=== PATIENT | male | born 1965 | race Hispanic/Latino ===

== ENCOUNTER 2020-07-19 05:39 | Inpatient (IN) | payer MEDICARE, MEDICAID ==
[~2020-07-19] VITALS: Ht 170.2 cm; Wt 81.6 kg
[~2020-07-19 05:39] MED LIST: IBUPROFEN600 MG ORAL; NKM
--- NOTE | 2020-07-19 05:43 | Emergency Room Report ---
History of Present Illness General Chief Complaint: Abdominal Pain Present Illness HPI 54-year-old male with a history of liver transplant 5 years ago at [facility] here with generalized abdominal pain and vomiting for 1 day. Patient has vomited several times nonbilious nonbloody. One episode of loose stool today. Denies drugs or alcohol. Says abdominal pain is diffuse and nonlocalized. He also says "I can feel my liver getting bigger." Patient takes CellCept and several psychiatric medications. No fevers, chills, chest pain, palpitations, shortness of breath, back pain, diarrhea, dysuria. 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 Nursing Documentation-PMH Hx Diabetes: Yes Review of Systems All Other Systems: negative except mentioned in HPI Physical Exam Sp02 EP Interpretation: reviewed, normal General Appearance: alert, non-toxic, moderate distress, other - Disheveled, foul-smelling, appears uncomfortable actively vomiting Head: normocephalic, atraumatic Eyes: bilateral eye normal inspection, bilateral eye PERRL ENT: hearing grossly normal, normal pharynx, no angioedema, normal voice Neck: full range of motion, supple/symm/no masses Respiratory: chest non-tender, lungs clear, normal breath sounds, speaking full sentences Cardiovascular #1: no edema, other - Tachycardic regular rhythm approximately 110 bpm Cardiovascular #2: 2+ carotid (R), 2+ carotid (L), 2+ radial (R), 2+ radial (L), 2+ dorsalis pedis (R), 2+ dorsalis pedis (L) Gastrointestinal: normal bowel sounds, no guarding, no rebound, other - Well- healed multiple midline abdominal surgical scars. Abdomen is slightly distended diffusely. Liver tip is palpable distal to the rib cage. Rectal: deferred Genitourinary: normal inspection, no CVA tenderness Musculoskeletal: back normal, normal range of motion, gait/station normal, non- tender Neurologic: alert, motor strength/tone normal, oriented x3, sensory intact, responsive, speech normal Psychiatric: judgement/insight normal, memory normal, mood/affect normal, no suicidal/homicidal ideation Lymphatic: no adenopathy Medical Decision Making Diagnostic Impression: Primary Impression: Abdominal pain ER Course EKG: Sinus rhythm 108 bpm, no ischemia, intervals WNL. No ectopy Rhythm strip: patient monitored for arrhythmias - no malignant dysrhythmias, runs of PVCs, nor pauses noted 54-year-old male with history of liver transplant on CellCept here with diffuse abdominal pain and vomiting and diarrhea for 1 day. Patient signed out to oncoming physician. Pending labs, fluids, pain medicine. Disposition pending at this time. Oscar Trevino M.D. Jul 19, 2020 05:43
[2020-07-19] MEDS ORDERED: Lidocaine 2% Visc 15ml soln ORAL ONE (05:45)
[2020-07-19] MEDS ORDERED: Dicyclomine HCl 10mg/5ml oral soln ORAL ONE (05:45)
[2020-07-19] MEDS ORDERED: Mylanta II UD 30ml ORAL ONE (05:45)
[2020-07-19 05:57] LABS: HEMATOCRIT 32.8 % (42.0-52.0); MEAN CORPUSCULAR VOLUME 93 FL (80-99); PLATELET COUNT 85 K/UL (150-450); RED BLOOD COUNT 3.53 M/UL (4.70-6.10); RED CELL DISTRIBUTION WIDTH 17.7 % (11.6-14.8); WHITE BLOOD COUNT 8.1 K/UL (4.8-10.8)
[2020-07-19] MEDS ORDERED: Morphine Sulfate 4mg/ml Inj (IV USE ONLY) IVP ONE (06:00)
[2020-07-19] MEDS ORDERED: Omnipaque-300 100ml vial INJ PRN (06:00)
--- NOTE | 2020-07-19 06:02 | NUR ---
ED Nurse Note: PT brought in by ambulance. Vitals are stable as documented on RA. Per EMS pt was found on the lobby floor of a hotel. He is complaining of severe abdominal pain and N/V starting at about 6pm last night. He states that he has a history of a liver transplant and that he has been drinking from time to time. ER MD asessed pt at bedside. Labs sent. Pt states that he is unalbe to give a urine sample. EKG done.
[2020-07-19 06:07] VITALS: BP 154/90
[2020-07-19 06:15] LABS: ANION GAP 13 mmol/L (5-15); BLOOD UREA NITROGEN 9 mg/dL (7-18); CALCIUM 8.2 MG/DL (8.5-10.1); CARBON DIOXIDE 24 MMOL/L (21-32); CHLORIDE 102 MMOL/L (98-107); CREATININE 0.9 MG/DL (0.55-1.30); POTASSIUM 3.2 MMOL/L (3.5-5.1); SODIUM 139 MMOL/L (136-145)
--- NOTE | 2020-07-19 06:28 | NUR ---
ED Nurse Note: Pt left for CT
[2020-07-19 06:46] LABS: ALANINE AMINOTRANSFERASE 73 U/L (12-78); ALBUMIN 3.8 G/DL (3.4-5.0); ALBUMIN/GLOBULIN RATIO 0.9 (1.0-2.7); ALKALINE PHOSPHATASE 653 U/L (46-116); ASPARTATE AMINO TRANSFERASE 126 U/L (15-37); BILIRUBIN,TOTAL 1.3 MG/DL (0.2-1.0)
[2020-07-19 06:57] LABS: BILIRUBIN,DIRECT 0.8 MG/DL (0.0-0.3)
--- NOTE | 2020-07-19 07:00 | NUR ---
ED Nurse Note: Pt back from CT
--- NOTE | 2020-07-19 07:02 | NUR ---
ED Nurse Note: Recieved report from MARY Alfaro. Patient c/o abd an lower back pain 10/10, anxious, asking for pain medication.
--- NOTE | 2020-07-19 07:16 | Emergency Room Report ---
Physical Exam Vital Signs Date Time Temp Pulse Resp B/P (MAP) Pulse Ox O2 Delivery O2 Flow Rate FiO2 07/19/20 05:36 98.6 116 20 172/89 (116) 99 Room Air Sp02 EP Interpretation: reviewed, normal Medical Decision Making Diagnostic Impression: Primary Impression: Abdominal pain Additional Impressions: Abnormal liver function test History of liver transplant Acute alcoholic intoxication End-stage liver disease Melena Anemia ER Course I, Dr Ronda Pimentel, have assumed care of the patient. Initial workup, history, and physical performed by previous provider has been reviewed by myself and I have performed my own physical exam of the patient. I reviewed previous medical records. Patient has history of pancytopenia secondary to previous alcoholism and polysubstance abuse. Patient apparently had a liver transplant 5 years ago at [facility] with Dr Bennett. He last had appointment with him 1 month ago. Routine blood labs at that time were normal including liver function test. Patient states his last drink was over Thanksgiving, only 2 beers. He states that he developed diffuse abdominal pain last night at 6 PM associated with nausea and vomiting. He states he has been having dark stools for the last 1 week. On initial vital signs, patient is afebrile, but is found to have hepatosplenomegaly on abdominal examination. No CVA tenderness to palpation. No peritonitis. He is tachycardic and tremulous, raising concern for etoh withdrawals. He had multiple bouts of vomiting in ED. CURES was performed. Patient was prescribed [place] in April 2020, however has no recent prescriptions. Laboratory evaluation is notable for abnormal LFTs. EtOH level is 31. No significant leukocytosis or acidosis. Troponin is negative x1. EKG is nonischemic. When asked about the high etoh level, patient now states he has been drinking wine x 1 month (last drink yesterday 1/2 bottle of wine) to numb his pain. CT scan of the abdomen pelvis shows heterogeneous lobular low density in the anterior right and medial left hepatic lobe. Nonspecific soft tissue stranding/inflammatory change near the deena hepatis in the right upper quadrant and pneumobilia, likely related to stent placement. Also found to have colitis. No perforation or free air. 0758: [facility] contacted for transfer. 0826: Attempted to contact Dr Bennett at [facility] ([phone]). No answer x 1. 0837: I spoke with [facility] transfer center ([facility]) who consulted with [facility] liver transplant team. Patient is well-known to [facility] liver team. According to [facility], patient has been drinking alcohol and taking methamphetamine despite counseling not to by his surgeons, thus causing a "divorce of care" from [facility]. They are no longer managing his transplant care due to non compliance. Last visit was one month ago. Patient had an upcoming telemedicine visit on 08/03/2019, but patient cancelled due to knee injury so it's postponed until 08/24/2019. [facility] will page Dr Bennett as I have not been able to reach him in office. I spoke with our [facility] risk management consultant, Dr. Gates who agrees with the current management. ED intervention included protonix for PUD r/o GI bleed in the setting of his melanotic stools. Pain control with morphine, Dilaudid. Zofran and Compazine alleviated his nausea. Steroids and antibiotics given for concern for transplant rejection, although less likely. Patient was hydrated and given thiamine and folic acid. I spoke with Dr. Grande, and reviewed the patients presentation, workup, results, and treatment. They will admit the patient for further care and evaluation, and assume care of the patient at this time. Critical Care Statement Organ systems at risk include: Circulatory, GI Critical care performed for 45 minutes. Time is exclusive of separately billable procedures. Time includes: direct patient care, continuous monitoring and multiple patient reassessment, coordination of patient care, review of patient's medical records, medical consultation, family consultation regarding treatment decisions and documentation of patient care. EKG Diagnostic Results PA Scribe Text 12-lead EKG (interpreted by me) Time: 0547 Indication: Rhythm analysis Tracing visualized and Interpreted by me. Rhythm: Sinus tachycardia Rate: 108 bpm QTc: 503 Morphology: No_significant_ST_elevations_or_depressions, No STEMI Impression: Sinus tachycardia Rhythm Strip Diag. Results Rhythm Strip Time: 07:11 EP Interpretation: yes Rate: 102 Rhythm: no PVC's, no ectopy, other - Sinus tachycardia CT/MRI/US Diagnostic Results CT/MRI/US Diagnostic Results : Impression CT Abdomen and Pelvis With Intravenous Contrast FINDINGS: Lung bases: Tiny nodular density in the inferior lingula. ABDOMEN: Liver: Heterogeneous lobular low density in the anterior right and medial left hepatic lobe which may partly reflect perfusion artifact. Follow-up underlying mass difficult to exclude given lobular contour inferiorly. Focal lobularity in the medial left hepatic lobe, nonspecific. Attention to this area on follow-up further imaging. Nonspecific soft tissue stranding in the perihepatic region. Gallbladder and bile ducts: Pneumobilia likely related to stent placement. Gallbladder not seen, likely surgically absent. No ductal dilation. Pancreas: Unremarkable. No mass. No ductal dilation. Spleen: Mild splenomegaly. Adrenals: Unremarkable. No mass. Kidneys and ureters: No evidence for obstructive uropathy. Nonspecific perinephric soft tissue stranding. Nonobstructing left renal calculus. Stomach and bowel: Thickening in the large bowel, especially the hepatic flexure which may partly reflect reactive change. Developing colitis difficult to entirely exclude. No evidence for bowel obstruction. PELVIS: Appendix: No findings to suggest acute appendicitis. Bladder: Thickening of the bladder wall which may partly reflect under distentio n. Recommend clinical correlation and follow-up to exclude developing cystitis. Reproductive: Unremarkable as visualized. ABDOMEN and PELVIS: Intraperitoneal space: Unremarkable. No free air. No significant fluid collection. Bones/joints: Deformity in the visualized left posterior lateral ribs, likely old posttraumatic change. No acute fracture. No dislocation. Soft tissues: Small fat-containing inguinal hernias bilaterally. Small periumbilical hernia containing fat. Vasculature: Unremarkable. No abdominal aortic aneurysm. Lymph nodes: Unremarkable. No enlarged lymph nodes. IMPRESSION: 1. Finding in the liver which may partly reflect perfusion artifact. Focal infarct or underlying lesion difficult to entirely exclude and follow-up liver MR recommended as indicated. 2. Pneumobilia likely related to stent placement. 3. Nonspecific soft tissue stranding/inflammatory change near the deena hepatis in the right upper quadrant. 4. No discrete fluid collection. 5. Findings which may reflect colitis as described 6. Recommend clinical correlation and close follow-up. 7. No evidence for bowel obstruction or free air. 8. Mild splenomegaly Radiologist: Anne Marie Beckford M.D. Reevaluation Time: 07:11 Last Vital Signs Date Time Temp Pulse Resp B/P (MAP) Pulse Ox O2 Delivery O2 Flow Rate FiO2 07/19/20 06:30 98.6 07/19/20 06:07 20 154/90 99 Room Air 07/19/20 06:07 105 Status: improved Disposition: ADMITTED INPATIENT Admit Decision Time: 07:11 Condition: Stable Referrals: [facility],REFERRING (PCP) Patient Instructions: Abdominal Pain, Adult Ronda Pimentel D.O. Jul 19, 2020 07:15
[2020-07-19] MEDS ORDERED: Pantoprazole Inj IVP ONE (07:30)
[2020-07-19] MEDS ORDERED: Solu-MEDROL 125mg Inj IVP ONE (07:30)
[2020-07-19] MEDS ORDERED: Hydromorphone 0.5mg/0.5ml inj IVP ONE (07:30)
[2020-07-19] MEDS ORDERED: DiphenhydrAMINE 50mg/ml Inj IVP ONE (07:30)
--- NOTE | 2020-07-19 07:32 | Diagnostic Imaging Report ---
EXAM: CT Abdomen and Pelvis With Intravenous Contrast CLINICAL HISTORY: PAIN TECHNIQUE: Axial computed tomography images of the abdomen and pelvis with intravenous contrast. CTDI is 11.80 mGy and DLP is 695.80 mGy-cm. One or more of the following dose reduction techniques were used: automated exposure control, adjustment of the mA and/or kV according to patient size, use of iterative reconstruction technique. COMPARISON: No relevant prior studies available. FINDINGS: Lung bases: Tiny nodular density in the inferior lingula. ABDOMEN: Liver: Heterogeneous lobular low density in the anterior right and medial left hepatic lobe which may partly reflect perfusion artifact. Follow-up underlying mass difficult to exclude given lobular contour inferiorly. Focal lobularity in the medial left hepatic lobe, nonspecific. Attention to this area on follow-up further imaging. Nonspecific soft tissue stranding in the perihepatic region. Gallbladder and bile ducts: Pneumobilia likely related to stent placement. Gallbladder not seen, likely surgically absent. No ductal dilation. Pancreas: Unremarkable. No mass. No ductal dilation. Spleen: Mild splenomegaly. Adrenals: Unremarkable. No mass. Kidneys and ureters: No evidence for obstructive uropathy. Nonspecific perinephric soft tissue stranding. Nonobstructing left renal calculus. Stomach and bowel: Thickening in the large bowel, especially the hepatic flexure which may partly reflect reactive change. Developing colitis difficult to entirely exclude. No evidence for bowel obstruction. PELVIS: Appendix: No findings to suggest acute appendicitis. Bladder: Thickening of the bladder wall which may partly reflect under distention. Recommend clinical correlation and follow-up to exclude developing cystitis. Reproductive: Unremarkable as visualized. ABDOMEN and PELVIS: Intraperitoneal space: Unremarkable. No free air. No significant fluid collection. Bones/joints: Deformity in the visualized left posterior lateral ribs, likely old posttraumatic change. No acute fracture. No dislocation. Soft tissues: Small fat-containing inguinal hernias bilaterally. Small periumbilical hernia containing fat. Vasculature: Unremarkable. No abdominal aortic aneurysm. Lymph nodes: Unremarkable. No enlarged lymph nodes. IMPRESSION: 1. Finding in the liver which may partly reflect perfusion artifact. Focal infarct or underlying lesion difficult to entirely exclude and follow-up liver MR recommended as indicated. 2. Pneumobilia likely related to stent placement. 3. Nonspecific soft tissue stranding/inflammatory change near the deena hepatis in the right upper quadrant. 4. No discrete fluid collection. 5. Findings which may reflect colitis as described 6. Recommend clinical correlation and close follow-up. 7. No evidence for bowel obstruction or free air. 8. Mild splenomegaly
[2020-07-19] MEDS ORDERED: LORazepam Inj 2mg/ml 1ml IV ONE (07:45)
[2020-07-19] MEDS ORDERED: Piperacillin/Tazobactam 3.375 GM in NS 110 ML IVPB ONE (08:30)
--- NOTE | 2020-07-19 12:06 | General Progress Note ---
Subjective ROS Limited/Unobtainable: Yes Allergies: Coded Allergies: ACETAMINOPHEN (Unverified Allergy, Unknown, 02/14/14) VOMITTING HYDROCODONE (Unverified Allergy, Unknown, 02/14/14) VOMITTING Objective Last 24 Hour Vital Signs Date Time Temp Pulse Resp B/P (MAP) Pulse Ox O2 Delivery O2 Flow Rate FiO2 07/19/20 08:03 98.6 07/19/20 06:30 98.6 07/19/20 06:07 98.6 20 154/90 99 Room Air 07/19/20 06:07 105 22 Room Air 07/19/20 05:36 98.6 116 20 172/89 (116) 99 Room Air Laboratory Tests 07/19/20 05:50: White Blood Count 8.1, Red Blood Count 3.53L, Hemoglobin 11.0L, Hematocrit 32.8L , Mean Corpuscular Volume 93, Mean Corpuscular Hemoglobin 31.2H, Mean Corpuscular Hemoglobin Concent 33.6, Red Cell Distribution Width 17.7H, Platelet Count 85L, Mean Platelet Volume 7.1, Neutrophils (%) (Auto) , Lymphocytes (%) (Auto) , Monocytes (%) (Auto) , Eosinophils (%) (Auto) , Basophils (%) (Auto) , Sodium Level 139, Potassium Level 3.2L, Chloride Level 102, Carbon Dioxide Level 24, Anion Gap 13, Blood Urea Nitrogen 9, Creatinine 0.9, Estimat Glomerular Filtration Rate > 60, Glucose Level 107H, Calcium Level 8.2L, Total Bilirubin 1.3H, Direct Bilirubin 0.8H, Aspartate Amino Transf (AST/SGOT) 126H, Alanine Aminotransferase (ALT/SGPT) 73, Alkaline Phosphatase 653H, Troponin I 0.000, Total Protein 7.9, Albumin 3.8, Globulin 4.1, Albumin/Globulin Ratio 0.9L, Lipase 65L, Serum Alcohol 31 Height (Feet): 5 Height (Inches): 7.00 Weight (Pounds): 180 General Appearance: alert EENT: normal ENT inspection Neck: supple Cardiovascular: normal rate Respiratory/Chest: lungs clear Abdomen: normal bowel sounds, non tender, soft Extremities: non-tender Assessment/Plan Problem List: (1) History of liver transplant ICD Codes: Z94.4 - Liver transplant status SNOMED: 086078647 (2) Abnormal liver function test ICD Codes: R94.5 - Abnormal results of liver function studies SNOMED: 459484188 (3) Abdominal pain ICD Codes: R10.9 - Unspecified abdominal pain SNOMED: 64325345 (4) Acute alcoholic intoxication ICD Codes: F10.129 - Alcohol abuse with intoxication, unspecified SNOMED: [id number] Assessment/Plan: s/p recent ercp and stenting at [facility] fu labs thiamine/folate/MVI monitor for withdraw resume home meds for liver transplant Josse Miramontes MD Jul 19, 2020 12:05
[2020-07-19 12:10] VITALS: BP 150/90
[2020-07-19] MEDS ORDERED: Thiamine 100mg tab ORAL SCH (12:15)
[2020-07-19 12:20] LABS: APPEARANCE,URINE CLEAR; BILIRUBIN, URINE NEGATIVE (NEGATIVE); GLUCOSE, URINE (UA) NEGATIVE (NEGATIVE); KETONES,URINE 1+ (NEGATIVE); LEUKOCYTE ESTERASE ,URINE NEGATIVE (NEGATIVE); NITRITE,URINE NEGATIVE (NEGATIVE); PH,URINE 7 (4.5-8.0); PROTEIN,URINE 1+ (NEGATIVE); UROBILINOGEN,URINE NORMAL MG/DL (0.0-1.0)
[2020-07-19 12:24] LABS: COLOR,URINE YELLOW
[2020-07-19] MEDS ORDERED: DICLOFEN 3%-HYA30 GM TP (12:36)
[2020-07-19] MEDS ORDERED: ZOFRAN ODT8 MG ORAL (12:36)
[2020-07-19] MEDS ORDERED: MYCOPHENOLATE250 MG PO (12:36)
[2020-07-19] MEDS ORDERED: PYRIDOXINE HCL50 MG ORAL (12:44)
[2020-07-19] MEDS ORDERED: VITAMIN B-1100 MG ORAL (12:44)
[2020-07-19] MEDS ORDERED: FOLIC ACID1 MG ORAL (12:44)
[2020-07-19] MEDS ORDERED: LIDOCAINE1 EACH TP (12:44)
[2020-07-19] MEDS ORDERED: PANTOPRAZOLE SO40 MG ORAL (12:44)
[2020-07-19] MEDS ORDERED: FERROUS SULFAT325 MG ORAL (12:44)
[2020-07-19] MEDS ORDERED: AMLODIPINE BESY10 MG ORAL (12:44)
--- NOTE | 2020-07-19 13:05 | Consultation ---
History of Present Illness General Date patient seen: Jul 19, 2020 Reason for Hospitalization: Abdominal Pain Present Illness HPI This is a pleasant 54-year-old male with history prior alcoholism and polysubstance abuse who is s/p liver transplant 5 years ago at [facility] with Dr. Bennett who presented to [facility] ED c/o abd pain. States has not used drugs meth in 1 month but still drinking heavy. Patient reported of diffuse abdominal pain with associated with nausea and vomiting. He also reports he has had dark stools for [address] as below. elevated lft's. exam with distended abd. surgery called to evaluate and assist with care. patient seen in ED, chart reviewed, patient examined. no n/v/f/c currently states he is hungry. Allergies: Coded Allergies: ACETAMINOPHEN (Unverified Allergy, Unknown, 02/14/14) VOMITTING HYDROCODONE (Unverified Allergy, Unknown, 02/14/14) VOMITTING COVID-19 Screening Contact w/high risk pt: No Experienced COVID-19 symptoms?: No Medication History Scheduled Amlodipine Besylate* (Amlodipine Besylate*), 10 MG ORAL DAILY, (Reported) Aspirin Ec* (Aspirin Ec*), 81 MG ORAL DAILY, (Reported) Cholecalciferol (Vitamin D3) (Vitamin D3*), 25 MCG PO DAILY, (Reported) Clindamycin Phosphate Vag cream (Clindesse Vag Cream), 5.8 GM VG BEDTIME, (Reported) Ferrous Sulfate* (Ferrous Sulfate*), 325 MG ORAL DAILY, (Reported) Folic Acid* (Folic Acid*), 1 MG ORAL DAILY, (Reported) No Known Medications* (NKM - No Known Medications*), 0 ., (Reported) Pantoprazole* (Pantoprazole*), 40 MG ORAL DAILY, (Reported) Propranolol Hcl* (Inderal La*), 20 MG ORAL DAILY, (Reported) Pyridoxine Hcl* (Vitamin B-6*), 50 MG ORAL DAILY, (Reported) Thiamine Hcl* (Vitamin B-1*), 100 MG ORAL DAILY, (Reported) Triamcinolone Acetonide (Triamcinolone Acetonide 0.5% Oint*), 15 GM TP NEEDED, (Reported) Venlafaxine Hcl (Venlafaxine Hcl*), 200 MG ORAL DAILY, (Reported) Scheduled PRN Hydrocodone Bit/Acetaminophen 5-325* (Ider 5-325 Tablet*), 1 TAB ORAL Q6H PRN for FOR PAIN, (Reported) Ibuprofen (Motrin), 600 MG ORAL Q8H PRN for For Pain Ondansetron Odt* (Zofran Odt*), 4 MG ORAL Q6H PRN for Nausea & Vomiting, (Reported) Zolpidem Tartrate* (Zolpidem Tartrate*), 5 MG ORAL BEDTIME PRN for Insomnia, (Reported) Miscellaneous Medications Diclofenac/Hyaluronate/Niacin (Diclofen 3%-Hyaluron 2%-Niac4%), 30 GM TP, (Reported) Lidocaine (Lidocaine), 1 EACH TP, (Reported) Magnesium Oxide (Magnesium), 400 MG PO, (Reported) Mycophenolate Mofetil (Mycophenolate Mofetil), 250 MG PO, (Reported) Tacrolimus (Tacrolimus), 3 MG PO, (Reported) Patient History History Provided By: Patient, Medical Record, PMD Healthcare decision maker Resuscitation status Advanced Directive on File Past Medical/Surgical History Past Medical/Surgical History: (1) Flank pain (2) Acute chest pain (3) Rhabdomyolysis (4) Amphetamine abuse (5) Hypokalemia (6) [id number] (7) Alcohol intoxication (8) Alcohol abuse (9) Shoulder Pain (10) narcotic seeking behavior (11) [id number] (12) Acute alcoholic intoxication (13) Alcohol abuse (14) Pancytopenia (15) Opioid dependence (16) Opioid dependence (17) Alcohol withdrawal (18) Melena (19) Anemia (20) Acute alcoholic intoxication (21) Abdominal pain (22) Abnormal liver function test (23) End-stage liver disease Review of Systems Review of Symptoms General ROS: no weight loss or fever Psychological ROS: no depression or mood changes, no memory loss Ophthalmic ROS: no visual changes or eye irritation ENT ROS: no nasal congestion, hearing loss, dizziness Allergy and Immunology ROS: no allergic symptoms or urticaria Hematological and Lymphatic ROS: no swollen glands, unusual bleeding or bruising Endocrine ROS: no polyuria, polydipsia, weight changes, temperature intolerance Respiratory ROS: no cough, shortness of breath, or wheezing Cardiovascular ROS: no chest pain or dyspnea on exertion Gastrointestinal ROS: denies abdominal pain, bright red blood in stool. Musculoskeletal ROS: no myalgias or arthralgias Neurological ROS: no TIA or stroke symptoms Dermatological ROS: no new or changing skin lesions, rashes or pruritis Physical Exam Physical Exam General appearance: alert, cooperative, no distress, appears stated age Head: Normocephalic, without obvious abnormality, atraumatic Eyes: conjunctivae/corneas clear. PERRL, EOM's intact. Fundi benign Throat: Lips, mucosa, and tongue normal. Teeth and gums normal Neck: supple, symmetrical, trachea midline, no adenopathy, thyroid: not enlarged, symmetric, no tenderness/mass/nodules, no carotid bruit and no JVD Lungs: clear to auscultation bilaterally Heart: regular rate and rhythm, S1, S2 normal, no murmur, click, rub or gallop Abdomen: soft, non-tender. Bowel sounds normal. No masses, enlarged liver. chevron incision c/d/i Extremities: extremities normal, atraumatic, no cyanosis or edema Pulses: 2+ and symmetric Skin: Skin color, texture, turgor normal. No rashes or lesions Neurologic: Grossly normal Last 24 Hour Vital Signs Date Time Temp Pulse Resp B/P (MAP) Pulse Ox O2 Delivery O2 Flow Rate FiO2 07/19/20 08:03 98.6 07/19/20 06:30 98.6 07/19/20 06:07 98.6 20 154/90 99 Room Air 07/19/20 06:07 105 22 Room Air 07/19/20 05:36 98.6 116 20 172/89 (116) 99 Room Air Laboratory Tests Test 07/19/20 05:50 07/19/20 11:20 White Blood Count 8.1 K/UL (4.8-10.8) Red Blood Count 3.53 M/UL (4.70-6.10) L Hemoglobin 11.0 G/DL (14.2-18.0) L Hematocrit 32.8 % (42.0-52.0) L Mean Corpuscular Volume 93 FL (80-99) Mean Corpuscular Hemoglobin 31.2 PG (27.0-31.0) H Mean Corpuscular Hemoglobin Concent 33.6 G/DL (32.0-36.0) Red Cell Distribution Width 17.7 % (11.6-14.8) H Platelet Count 85 K/UL (150-450) L Mean Platelet Volume 7.1 FL (6.5-10.1) Neutrophils (%) (Auto) % (45.0-75.0) Lymphocytes (%) (Auto) % (20.0-45.0) Monocytes (%) (Auto) % (1.0-10.0) Eosinophils (%) (Auto) % (0.0-3.0) Basophils (%) (Auto) % (0.0-2.0) Sodium Level 139 MMOL/L (136-145) Potassium Level 3.2 MMOL/L (3.5-5.1) L Chloride Level 102 MMOL/L (98-107) Carbon Dioxide Level 24 MMOL/L (21-32) Anion Gap 13 mmol/L (5-15) Blood Urea Nitrogen 9 mg/dL (7-18) Creatinine 0.9 MG/DL (0.55-1.30) Estimat Glomerular Filtration Rate > 60 mL/min (>60) Glucose Level 107 MG/DL (74-106) H Calcium Level 8.2 MG/DL (8.5-10.1) L Total Bilirubin 1.3 MG/DL (0.2-1.0) H Direct Bilirubin 0.8 MG/DL (0.0-0.3) H Aspartate Amino Transf (AST/SGOT) 126 U/L (15-37) H Alanine Aminotransferase (ALT/SGPT) 73 U/L (12-78) Alkaline Phosphatase 653 U/L (46-116) H Troponin I 0.000 ng/mL (0.000-0.056) Total Protein 7.9 G/DL (6.4-8.2) Albumin 3.8 G/DL (3.4-5.0) Globulin 4.1 g/dL Albumin/Globulin Ratio 0.9 (1.0-2.7) L Lipase 65 U/L (73-393) L Alpha Fetoprotein Pending Tacrolimus (Prograf) Level Pending Serum Alcohol 31 mg/dL Urine Color Yellow Urine Appearance Clear Urine pH 7 (4.5-8.0) Urine Specific [place] 1.005 (1.005-1.035) Urine Protein 1+ (NEGATIVE) H Urine Glucose (UA) Negative (NEGATIVE) Urine Ketones 1+ (NEGATIVE) H Urine Blood Negative (NEGATIVE) Urine Nitrite Negative (NEGATIVE) Urine Bilirubin Negative (NEGATIVE) Urine Urobilinogen Normal MG/DL (0.0-1.0) Urine Leukocyte Esterase Negative (NEGATIVE) Urine RBC 0-2 /HPF (0 - 0) H Urine WBC 0-2 /HPF (0 - 0) Urine Squamous Epithelial Cells Occasional /LPF Urine Bacteria Occasional /HPF (NONE) Urine Opiates Screen Negative (NEGATIVE) Urine Barbiturates Screen Negative (NEGATIVE) Phencyclidine (PCP) Screen Negative (NEGATIVE) Urine Amphetamines Screen Positive (NEGATIVE) H Urine Benzodiazepines Screen Negative (NEGATIVE) Urine Cocaine Screen Negative (NEGATIVE) Urine Marijuana (THC) Screen Positive (NEGATIVE) H Microbiology Date/Time Source Procedure Growth Status 07/19/20 07:59 Nasopharynx SARS-CoV-2 RdRp Gene Assay - Final Complete Height (Feet): 5 Height (Inches): 7.00 Weight (Pounds): 180 Medications Current Medications Medications (Trade) Dose Ordered Sig/Lauro Route PRN Reason Start Time Stop Time Status Last Admin Dose Admin Amlodipine Besylate (Norvasc) 10 mg DAILY ORAL 07/20/20 09:00 08/19/20 08:59 Ferrous Sulfate (Feosol) 325 mg DAILY ORAL 07/20/20 09:00 10/18/20 08:59 Folic Acid (Folate) 1 mg DAILY ORAL 07/20/20 09:00 08/19/20 08:59 Iohexol (OMNIPAQUE-300 100ml) 100 ml NOW PRN INJ Radiology Procedure 07/19/20 06:00 07/21/20 05:59 Multivitamins (Multivitamins) 1 tab DAILY ORAL 07/20/20 09:00 08/19/20 08:59 Mycophenolate Mofetil (Cellcept) 250 mg BID ORAL 07/19/20 18:00 10/17/20 17:59 Pantoprazole (Protonix) 40 mg DAILY ORAL 07/20/20 09:00 08/19/20 08:59 Pyridoxine HCl (Vitamin B6) 50 mg DAILY ORAL 07/20/20 09:00 08/19/20 08:59 Thiamine HCl (Vitamin B1) 100 mg DAILY ORAL 07/20/20 09:00 08/19/20 08:59 Thiamine HCl (Vitamin B1) 100 mg ONCE ORAL 07/19/20 12:15 07/19/20 15:00 Assessment/Plan Problem List: (1) Alcohol withdrawal ICD Codes: F10.239 - Alcohol dependence with withdrawal, unspecified SNOMED: 871514607 (2) Melena ICD Codes: K92.1 - Melena SNOMED: 0976033 (3) Anemia ICD Codes: D64.9 - Anemia, unspecified SNOMED: 999751453 (4) Acute alcoholic intoxication ICD Codes: F10.129 - Alcohol abuse with intoxication, unspecified SNOMED: 74450035 (5) Abdominal pain Assessment & Plan: 54M hx liver transplant currently drinking again presented with abd pain afebrile, HD Stable labs with elevated lft's CT reviewed exam with enlarged liver no peritonitis okay for diet no acute surgical intervention iv fluids trend labs etoh refrain discussed thank you ABDOMEN: Liver: Heterogeneous lobular low density in the anterior right and medial left hepatic lobe which may partly reflect perfusion artifact. Follow-up underlying mass difficult to exclude given lobular contour inferiorly. Focal lobularity in the medial left hepatic lobe, nonspecific. Attention to this area on follow-up further imaging. Nonspecific soft tissue stranding in the perihepatic region. Gallbladder and bile ducts: Pneumobilia likely related to stent placement. Gallbladder not seen, likely surgically absent. No ductal dilation. Pancreas: Unremarkable. No mass. No ductal dilation. Spleen: Mild splenomegaly. Adrenals: Unremarkable. No mass. Kidneys and ureters: No evidence for obstructive uropathy. Nonspecific perinephric soft tissue stranding. Nonobstructing left renal calculus. Stomach and bowel: Thickening in the large bowel, especially the hepatic flexure which may partly reflect reactive change. Developing colitis difficult to entirely exclude. No evidence for bowel obstruction. PELVIS: Appendix: No findings to suggest acute appendicitis. Bladder: Thickening of the bladder wall which may partly reflect under distention. Recommend clinical correlation and follow-up to exclude developing cystitis. Reproductive: Unremarkable as visualized. ABDOMEN and PELVIS: Intraperitoneal space: Unremarkable. No free air. No significant fluid collection. Bones/joints: Deformity in the visualized left posterior lateral ribs, likely old posttraumatic change. No acute fracture. No dislocation. Soft tissues: Small fat-containing inguinal hernias bilaterally. Small periumbilical hernia containing fat. Vasculature: Unremarkable. No abdominal aortic aneurysm. Lymph nodes: Unremarkable. No enlarged lymph nodes. IMPRESSION: 1. Finding in the liver which may partly reflect perfusion artifact. Focal infarct or underlying lesion difficult to entirely exclude and follow-up liver MR recommended as indicated. 2. Pneumobilia likely related to stent placement. 3. Nonspecific soft tissue stranding/inflammatory change near the deena hepatis in the right upper quadrant. 4. No discrete fluid collection. 5. Findings which may reflect colitis as described 6. Recommend clinical correlation and close follow-up. 7. No evidence for bowel obstruction or free air. 8. Mild splenomegaly ICD Codes: R10.9 - Unspecified abdominal pain SNOMED: 18693067 (6) Abnormal liver function test ICD Codes: R94.5 - Abnormal results of liver function studies SNOMED: 553297882 (7) End-stage liver disease ICD Codes: K72.90 - Hepatic failure, unspecified without coma SNOMED: 78359660 (8) Hypokalemia (9) Alcohol intoxication (10) 32458 (11) Opioid dependence ICD Codes: F11.20 - Opioid dependence, uncomplicated SNOMED: 43801707 (12) Opioid dependence ICD Codes: F11.20 - Opioid dependence, uncomplicated SNOMED: 07517734 (13) Alcohol abuse (14) Alcohol abuse ICD Codes: F10.10 - Alcohol abuse, uncomplicated SNOMED: 23842810 (15) Flank pain (16) Pancytopenia ICD Codes: D61.818 - Other pancytopenia SNOMED: 169484000 (17) Rhabdomyolysis (18) Acute alcoholic intoxication ICD Codes: F10.129 - Alcohol abuse with intoxication, unspecified SNOMED: 32287882 (19) Amphetamine abuse (20) Acute chest pain (21) [id number] (22) Shoulder Pain (23) narcotic seeking behavior Polo Gates Jul 19, 2020 13:05
[2020-07-19] MEDS ORDERED: INDERAL LA60 MG ORAL (13:20)
[2020-07-19] MEDS ORDERED: TACROLIMUS1 MG PO (13:20)
[2020-07-19] MEDS ORDERED: MAGNESIUM400 M1 PO (13:20)
[2020-07-19] MEDS ORDERED: VITAMIN D325 MC1 PO (13:20)
[2020-07-19] MEDS ORDERED: TRIAMCINOLONE A15 G3 TP (13:20)
[2020-07-19] MEDS ORDERED: VENLAFAXINE HC100 MG ORAL (13:20)
[2020-07-19] MEDS ORDERED: ASPIRIN EC81 MG ORAL (13:20)
[2020-07-19] MEDS ORDERED: NORCO 5-325 TA1 EAC1 ORAL (13:20)
[2020-07-19] MEDS ORDERED: CLINDESSE5.8 GM VG (13:20)
[2020-07-19] MEDS ORDERED: ZOLPIDEM TARTRAT5 MG ORAL (13:20)
--- NOTE | 2020-07-19 13:20 | NUR ---
ED Nurse Note: lunch tray was provided, patient was able to finish 100% of his meal. Patient calm, and cooperative, all VSS at this time
--- NOTE | 2020-07-19 15:00 | HX and Phyl Repo 2 Sig ---
DATE OF ADMISSION: 07/19/2020 ATTENDING PHYSICIAN: Joao Grande MD REASON FOR ADMISSION: Melena. HISTORY OF PRESENT ILLNESS: This is a 54-year-old male with history of pancytopenia secondary to previous alcoholism and polysubstance abuse. Patient has a history of liver transplant 5 years ago at [facility] with Dr. Bennett. Patient reported of diffuse abdominal pain at 6 p.m. yesterday associated with nausea and vomiting. He also reports he has had dark stools for 1 week. Multiple bouts of vomiting in the ED noted from the chart. Initial laboratory study in the ER is notable for abnormal LFTs with ETOH level of 31. Troponin is negative. EKG is nonischemic. CT of the abdomen and pelvis show heterogeneous lobular low density in the anterior right and medial left hepatic lobe. Nonspecific soft tissue stranding/inflammatory change near the deena hepatis in the right upper quadrant and pneumobilia, likely related to stent placement. Also found to have colitis. No perforation or free air. Patient received Protonix, morphine, Dilaudid. Zofran and Compazine for nausea. Patient also received steroids and antibiotics. Patient was hydrated and given thiamine and folic acid in the ER. Patient was negative for COVID-19. On evaluation, patient is in bed, not in acute distress, however, knees flexed with his hands on his lower abdomen. Patient denies fever, cough, shortness of breath, chest pain, lightheadedness. Patient denies pain with bowel movement or any urinary symptoms. PAST MEDICAL HISTORY: Hypertension, rhabdomyolysis, substance abuse, alcohol abuse, end-stage liver disease. SURGERIES: Liver transplant 5 years ago at [facility], shoulder surgery, spine surgery per patient. MEDICATIONS: CellCept; full list of ambulatory medications unavailable at this time. ALLERGIES: Acetaminophen, hydrocodone. FAMILY HISTORY: Noncontributory. PERSONAL AND SOCIAL HISTORY: Reports drinking alcohol. REVIEW OF SYSTEMS: HEENT: Denies any headaches, blurry vision, hoarseness, dysphagia, hearing loss, tinnitus, or loss of balance. CHEST AND LUNGS: Denies any chest discomfort or hemoptysis. CARDIOVASCULAR: Denies any exertional chest pain, pressure, palpitation, orthopnea, PND. GASTROINTESTINAL: Reports vomiting and black tarry stool x1 week. GENITOURINARY: Denies any frequency, urgency, dysuria, hematuria, flank pain, kidney stone, or kidney disease. NEUROLOGICAL: Denies seizure activity, dizziness, or fainting episodes. PHYSICAL EXAMINATION: VITAL SIGNS: Blood pressure 154/90, heart rate 105, respiratory rate 22, weight 81 kg, height 170 cm. HEENT: Head exam reveals that the head is normocephalic, atraumatic without deformity or unusual swelling, pupils are PERRLA. Nasal mucosa pink. Vision is normal. CHEST AND LUNGS: Reveals clear, normal, symmetrical breath sounds with no adventitious sounds. CARDIOVASCULAR: Reveals normal S1, S2 without murmurs, rubs, or clicks. ABDOMEN: Well-healed multiple midline abdominal surgical scars. Abdomen is slightly distended diffusely. Hepatosplenomegaly noted. RECTAL: Deferred. MUSCULOSKELETAL: There is no tenderness to palpation. NEUROLOGICAL: Cranial nerves II to XII are intact. LABORATORY DATA: Laboratory testing shows hemoglobin 11.0, hematocrit 32.8, platelet count 85. Chemistry showed potassium 3.2, calcium 8.2, total bilirubin 1.3, direct bilirubin 0.8, AST 126, ALT 73, alkaline phosphatase 653, lipase 65. Serum alcohol 31. IMPRESSION: 1. Colitis. - GI/Surgery consult appreciated. 2. Elevated LFTs. - Patient reports drinking despite liver transplant surgery 5 years ago; he is no longer under [facility] care due to his noncompliance. - Strongly discouraged alcohol use. - Monitor LFTs. 3. Melena. - Status post once Protonix. - GI consult appreciated. 4. Vomiting. - Better on Zofran. 5. History of liver transplant, on medication. - We will continue immunosuppressive therapy. The care for this patient was discussed with my supervising physician. Time spent for this case was approximately 31 minutes. Joao Grande M.D. ANDREA Milian DR: SHANTE JOB#: [id number] CC:
--- NOTE | 2020-07-19 15:15 | Consultation ---
DATE OF CONSULTATION: 07/19/2020 INFECTIOUS DISEASE CONSULTATION CONSULTING PHYSICIAN: Esperanza Nick MD. REFERRING PHYSICIAN: Joao Gradne MD. REASON FOR CONSULT: Possible urinary tract infection. HISTORY OF PRESENTING ILLNESS: This is a 54-year-old gentleman with history of liver transplant and pancytopenia, who comes in with altered mental status. There was a concern for urinary tract infection and an Infectious Diseases consultation has been obtained for antibiotics. PAST MEDICAL HISTORY: History of liver transplant. He underwent ERCP and stenting at [facility]. Rest of the history is unknown. SOCIAL HISTORY: He used to have a history of alcohol use and polysubstance abuse. FAMILY HISTORY: Unknown. REVIEW OF SYSTEMS: Unable to obtain currently. MEDICATIONS: As an inpatient, he is on multivitamin, folic acid, and thiamine. ALLERGIES: 1. Acetaminophen. 2. Hydrocodone. PHYSICAL EXAMINATION: VITAL SIGNS: Temperature 98.6, T-max of 98.6, pulse of 105, respiratory rate 22, blood pressure 154/90. O2 saturation of 99% on room air. HEENT: Pupils are equally reactive to light and accommodation. Mouth appears clean without thrush. NECK: Supple. No adenopathy. No JVD. CARDIOVASCULAR: Regular rate and rhythm. No murmurs. LUNGS: Clear to auscultation bilaterally. No crackles. No wheezes. ABDOMEN: Soft, nontender. No organomegaly. EXTREMITIES: No cyanosis, no clubbing, no edema. LABORATORY DATA: White count 8.1, hemoglobin 11, hematocrit 32.8, MCV 93, platelet count of 85,000. Sodium 139, potassium 3.2, chloride 102, bicarb 24, BUN 9, creatinine 0.9. Glucose 107. Calcium 8.2. Total bilirubin 1.3, direct bilirubin 0.8. AST 126, ALT 73, alkaline phosphatase 653. Troponin 0. Total protein 7.9, albumin 3.8. Lipase of 65. UA is pending. COVID-[address] abdomen and pelvis showing mild splenomegaly, possible cystitis, also possible colitis. ASSESSMENT: This is a 54-year-old gentleman with history of liver transplant and alcohol use, who comes in with altered mental status and is found to have, 1. Possible urinary tract infection. 2. He also possibly has colitis. 3. Status post liver transplant. PLAN: 1. Continue Zosyn. 2. We will follow up cultures and adjust antibiotics accordingly. I would like to thank Dr. Grande for this consultation. Esperanza Nick M.D. DR: SAULO JOB#: [id number] CC:
[2020-07-19 16:05] VITALS: BP 143/89
--- NOTE | 2020-07-19 17:35 | NUR ---
ED Nurse Note: patient is sleeping, NAD noted
[2020-07-19] MEDS ORDERED: Mycophenolate 250mg cap ORAL SCH (18:00)
[2020-07-19] MEDS ORDERED: Thiamine 100mg tab ONE (18:26)
[2020-07-19] MEDS: Mycophenolate 250mg cap ORAL SCH (19:04)
--- NOTE | 2020-07-19 22:15 | NUR ---
NURSE NOTES: Receive a report from MARY Chris, from ED.
--- NOTE | 2020-07-19 22:33 | NUR ---
ED Nurse Note: report given to JasminRN
--- NOTE | 2020-07-19 22:38 | NUR ---
ED Nurse Note: Patient was admited to [facility] due to abdominal pain, N/V. Patient was transfered to the unit via gurney, with all belongings. Patient AAO x4, all VSS at this time, skin is warm to touch, no pain.
--- NOTE | 2020-07-19 22:40 | NUR ---
NURSE NOTES: Pt admitted from ED via hospital bed. Awake and alert. No acute distress noted. No N/V noted but feeling hungry. Pain on lower abdomen, back and generalized body noted. Will contact to for pain medication order. Pt says he has been having diarrhea with dark color. Will check stool color and consistency for next BM on hat. Done checking belonging list. Skin intact. Noted IV site infiltrated. Removed it and will reestablish one. Given unit orientation. Call light within reach. Will continue to monitor.
[2020-07-19 22:45] VITALS: BP 141/93
--- NOTE | 2020-07-19 23:45 | NUR ---
NURSE NOTES: Spoke to Dr. Grande and receive admission orders. Order noted and carried out. Home medication will be sent to pharmacy.
[2020-07-20] VITALS: BP 140/91
[2020-07-20] MEDS: traMADol 50mg tab ORAL PRN ×2 (00:48→19:59)
[2020-07-20 04:00] VITALS: BP 127/82
--- NOTE | 2020-07-20 06:45 | NUR ---
NURSE NOTES: Generalize pain decreased but feeling nauseated. Given prn Zofran IVS. Pt had small amount of greenish diarrhea and collected. Will send it to lab for C.diff. Will continue to follow up.
--- NOTE | 2020-07-20 07:45 | NUR ---
NURSE NOTES: Pt lying in bed w/bed in lowest position and call light within reach. Pt A&Ox4, VSS, and in no apparent distress. IV site intact/asymptomatic & H/L'd. Pt denies any N/V at this time. Will continue to monitor.
--- NOTE | 2020-07-20 07:45 | NUR ---
NURSE HAND-OFF: Important Events on Shift: admission, pain controlx1, nausea medx1, diarrhea x1--> C.diff Patient Status: [stable] Diet: [regular] Pending Orders: [] Pending Results/Labs:[stool C.diff] Pending MD notification:[] Latest Vital Signs: Temperature 97.7 , Pulse 100 , B/P 127 /82 , Respiratory Rate 18 , O2 SAT 97 , Room Air, O2 Flow Rate . Vital Sign Comment: [] Latest Brambila Fall Score: 35 Fall Risk: Medium Risk Safety Measures: Call light Within Reach, Bed Alarm , Side Rails Side Rails x2, Bed position Low and Locked. Fall Precautions: Yellow Socks Door Sign Patient Fall Education Report given to MARY Fuentes.
[2020-07-20 07:50] LABS: HEMATOCRIT 28.9 % (42.0-52.0); HEMOGLOBIN 10.3 G/DL (14.2-18.0); MEAN CORPUSCULAR VOLUME 88 FL (80-99); PLATELET COUNT 69 K/UL (150-450); RED BLOOD COUNT 3.27 M/UL (4.70-6.10); RED CELL DISTRIBUTION WIDTH 19.3 % (11.6-14.8); WHITE BLOOD COUNT 5.1 K/UL (4.8-10.8)
[2020-07-20 08:00] VITALS: BP 145/95
[2020-07-20 08:26] LABS: ALANINE AMINOTRANSFERASE 54 U/L (12-78); ALBUMIN 3.2 G/DL (3.4-5.0); ALBUMIN/GLOBULIN RATIO 0.9 (1.0-2.7); ALKALINE PHOSPHATASE 544 U/L (46-116); ANION GAP 7 mmol/L (5-15); ASPARTATE AMINO TRANSFERASE 77 U/L (15-37); BILIRUBIN,TOTAL 1.2 MG/DL (0.2-1.0); BLOOD UREA NITROGEN 14 mg/dL (7-18); CALCIUM 8.2 MG/DL (8.5-10.1); CARBON DIOXIDE 28 MMOL/L (21-32); CHLORIDE 102 MMOL/L (98-107); CREATININE 0.9 MG/DL (0.55-1.30); POTASSIUM 3.4 MMOL/L (3.5-5.1); SODIUM 137 MMOL/L (136-145)
[2020-07-20 08:28] LABS: BILIRUBIN,DIRECT 0.7 MG/DL (0.0-0.3)
[2020-07-20] MEDS: Pyridoxine 50mg tab ORAL SCH (08:47)
[2020-07-20] MEDS: Mycophenolate 250mg cap ORAL SCH ×2 (08:47→17:46)
[2020-07-20] MEDS: Piperacillin/Tazobactam 3.375 GM in NS 110 ML IVPB SCH ×4 (08:48→21:41)
[2020-07-20] MEDS: Thiamine 100mg tab ORAL SCH (08:51)
--- NOTE | 2020-07-20 11:19 | Pulmonology Progress Note ---
Subjective ROS Limited/Unobtainable: No Interval Events: acute diarrhea; c. diff test ordered Constitutional: Reports: no symptoms HEENT: Repors: no symptoms Respiratory: Reports: no symptoms Cardiovascular: Reports: no symptoms Gastrointestinal/Abdominal: Reports: diarrhea Allergies: Coded Allergies: ACETAMINOPHEN (Unverified Allergy, Unknown, 02/14/14) VOMITTING HYDROCODONE (Unverified Allergy, Unknown, 02/14/14) VOMITTING Objective Last 24 Hour Vital Signs Date Time Temp Pulse Resp B/P (MAP) Pulse Ox O2 Delivery O2 Flow Rate FiO2 07/20/20 08:47 94 145/95 07/20/20 08:00 98.2 94 18 145/95 (112) 97 07/20/20 04:00 97.7 100 18 127/82 (97) 97 07/20/20 00:00 97.7 93 18 140/91 (107) 97 07/19/20 22:45 97.1 91 18 141/93 (109) 99 07/19/20 22:45 Room Air 07/19/20 22:33 98.6 82 20 143/89 99 Room Air 82 07/19/20 16:05 98.6 82 20 143/89 99 Room Air 82 07/19/20 12:10 98.6 87 20 150/90 99 Room Air 87 Intake and Output 07/19/20 07/20/20 19:00 07:00 Intake Total 2200 ml Balance 2200 ml Intake Oral 1200 ml IV Total 1000 ml # Voids 3 # Bowel Movements 1 Objective 07/20 saturating well on RA, acute diarrhea; C diff ordered General Appearance: WD/WN, no acute distress Respiratory: lungs clear Cardiovascular: normal rate, regular rhythm Abdomen: other - obese Microbiology Date/Time Source Procedure Growth Status 07/19/20 07:59 Nasopharynx SARS-CoV-2 RdRp Gene Assay - Final Complete Laboratory Tests 07/19/20 11:20: Urine Color Yellow, Urine Appearance Clear, Urine pH 7, Urine Specific [place] 1.005, Urine Protein 1+H, Urine Glucose (UA) Negative, Urine Ketones 1+H, Urine Blood Negative, Urine Nitrite Negative, Urine Bilirubin Negative, Urine Urobilinogen Normal, Urine Leukocyte Esterase Negative, Urine RBC 0-2H, Urine WBC 0-2, Urine Squamous Epithelial Cells Occasional, Urine Bacteria Occasional, Urine Opiates Screen Negative, Urine Barbiturates Screen Negative, Phencyclidine (PCP) Screen Negative, Urine Amphetamines Screen PositiveH, Urine Benzodiazepines Screen Negative, Urine Cocaine Screen Negative, Urine Marijuana (THC) Screen PositiveH 07/20/20 05:44: White Blood Count 5.1, Red Blood Count 3.27L, Hemoglobin 10.3L, Hematocrit 28.9L , Mean Corpuscular Volume 88, Mean Corpuscular Hemoglobin 31.5H, Mean Corpuscular Hemoglobin Concent 35.7, Red Cell Distribution Width 19.3H, Platelet Count 69L, Mean Platelet Volume 7.1, Neutrophils (%) (Auto) , Lymphocytes (%) (Auto) , Monocytes (%) (Auto) , Eosinophils (%) (Auto) , Basophils (%) (Auto) , Differential Total Cells Counted 100, Neutrophils % (Manual) 87H, Lymphocytes % (Manual) 5L, Monocytes % (Manual) 8, Eosinophils % (Manual) 0, Basophils % (Manual) 0, Band Neutrophils 0, Platelet Estimate DecreasedL, Platelet Morphology Normal, Hypochromasia 1+, Anisocytosis 1+, Sodium Level 137, Potassium Level 3.4L, Chloride Level 102, Carbon Dioxide Level 28, Anion Gap 7, Blood Urea Nitrogen 14, Creatinine 0.9, Estimat Glomerular Filtration Rate > 60, Glucose Level 99, Calcium Level 8.2L, Total Bilirubin 1.2H, Direct Bilirubin 0.7H, Aspartate Amino Transf (AST/SGOT) 77H, Alanine Aminotransferase (ALT/SGPT) 54, Alkaline Phosphatase 544H, Total Protein 6.9, Albumin 3.2L, Globulin 3.7, Albumin/Globulin Ratio 0.9L Current Medications Medications (Trade) Dose Ordered Sig/Lauro Route PRN Reason Start Time Stop Time Status Last Admin Dose Admin Amlodipine Besylate (Norvasc) 10 mg DAILY ORAL 07/20/20 09:00 08/19/20 08:59 07/20/20 08:47 Ferrous Sulfate (Feosol) 325 mg DAILY ORAL 07/20/20 09:00 10/18/20 08:59 07/20/20 08:47 Folic Acid (Folate) 1 mg DAILY ORAL 07/20/20 09:00 08/19/20 08:59 07/20/20 08:47 Iohexol (OMNIPAQUE-300 100ml) 100 ml NOW PRN INJ Radiology Procedure 07/19/20 06:00 07/21/20 05:59 Multivitamins (Multivitamins) 1 tab DAILY ORAL 07/20/20 09:00 08/19/20 08:59 07/20/20 08:48 Mycophenolate Mofetil (Cellcept) 250 mg BID ORAL 07/19/20 18:00 10/17/20 17:59 07/20/20 08:47 Ondansetron HCl (Zofran) 4 mg Q4H PRN IVP Nausea & Vomiting 07/20/20 00:15 08/19/20 00:14 07/20/20 06:32 Pantoprazole (Protonix) 40 mg DAILY ORAL 07/20/20 09:00 08/19/20 08:59 07/20/20 08:47 Piperacillin Sod/ Tazobactam Sod 3.375 gm/Sodium Chloride 110 ml @ 27.5 mls/hr EVERY 8 HOURS IVPB 07/20/20 09:00 07/25/20 08:59 07/20/20 08:48 Pyridoxine HCl (Vitamin B6) 50 mg DAILY ORAL 07/20/20 09:00 08/19/20 08:59 07/20/20 08:47 Thiamine HCl (Vitamin B1) 100 mg DAILY ORAL 07/20/20 09:00 08/19/20 08:59 07/20/20 08:51 Tramadol HCl (Ultram) 50 mg Q6H PRN ORAL MODERATE TO SEVERE PAIN 07/20/20 00:15 07/27/20 00:14 07/20/20 00:48 Assessment/Plan Assessment/Plan 1. Colitis. - GI/Surgery consult appreciated. - Dr. Miramontes following 2. Elevated LFTs. - Patient reports drinking despite liver transplant surgery 5 years ago; he is no longer under [facility] care due to his noncompliance. - Strongly discouraged alcohol use. - Monitor LFTs; slight improvement today 3. Melena. - s/p once Protonix. - GI following 4. Vomiting. - Better on Zofran. 5. History of liver transplant, on medication. - We will continue immunosuppressive therapy. 6. Acute diarrhea - C diff test ordered; pending collection 7. Concern for UTI - On zosyn per Dr. Nick Other home meds continued The care for this patient was discussed with my supervising physician. Time spent for this case was approximately 31 minutes. Zian Brown Jul 20, 2020 11:19 Joao Grande MD Jul 20, 2020 15:30
[2020-07-20 12:00] VITALS: BP 141/88
--- NOTE | 2020-07-20 12:20 | Surgery Progress Note ---
Surgery Progress Note Subjective Symptoms: improved, tolerating diet, passing flatus Additional Comments feels much better no n/v [pain improved Objective Last 24 Hour Vital Signs Date Time Temp Pulse Resp B/P (MAP) Pulse Ox O2 Delivery O2 Flow Rate FiO2 07/20/20 09:00 Room Air 07/20/20 08:47 94 145/95 07/20/20 08:00 98.2 94 18 145/95 (112) 97 07/20/20 04:00 97.7 100 18 127/82 (97) 97 07/20/20 00:00 97.7 93 18 140/91 (107) 97 07/19/20 22:45 97.1 91 18 141/93 (109) 99 07/19/20 22:45 Room Air 07/19/20 22:33 98.6 82 20 143/89 99 Room Air 82 07/19/20 16:05 98.6 82 20 143/89 99 Room Air 82 I&O Intake and Output 07/19/20 07/20/20 19:00 07:00 Intake Total 2200 ml Balance 2200 ml Intake Oral 1200 ml IV Total 1000 ml # Voids 3 # Bowel Movements 1 Dressing: other Wound: other Cardiovascular: RSR Respiratory: decreased breath sounds Abdomen: soft, non-tender, present bowel sounds, non-distended Extremities: no edema, no tenderness, no cyanosis Laboratory Tests Test 07/20/20 05:44 White Blood Count 5.1 K/UL (4.8-10.8) Red Blood Count 3.27 M/UL (4.70-6.10) L Hemoglobin 10.3 G/DL (14.2-18.0) L Hematocrit 28.9 % (42.0-52.0) L Mean Corpuscular Volume 88 FL (80-99) Mean Corpuscular Hemoglobin 31.5 PG (27.0-31.0) H Mean Corpuscular Hemoglobin Concent 35.7 G/DL (32.0-36.0) Red Cell Distribution Width 19.3 % (11.6-14.8) H Platelet Count 69 K/UL (150-450) L Mean Platelet Volume 7.1 FL (6.5-10.1) Neutrophils (%) (Auto) % (45.0-75.0) Lymphocytes (%) (Auto) % (20.0-45.0) Monocytes (%) (Auto) % (1.0-10.0) Eosinophils (%) (Auto) % (0.0-3.0) Basophils (%) (Auto) % (0.0-2.0) Differential Total Cells Counted 100 Neutrophils % (Manual) 87 % (45-75) H Lymphocytes % (Manual) 5 % (20-45) L Monocytes % (Manual) 8 % (1-10) Eosinophils % (Manual) 0 % (0-3) Basophils % (Manual) 0 % (0-2) Band Neutrophils 0 % (0-8) Platelet Estimate Decreased L Platelet Morphology Normal Hypochromasia 1+ Anisocytosis 1+ Sodium Level 137 MMOL/L (136-145) Potassium Level 3.4 MMOL/L (3.5-5.1) L Chloride Level 102 MMOL/L (98-107) Carbon Dioxide Level 28 MMOL/L (21-32) Anion Gap 7 mmol/L (5-15) Blood Urea Nitrogen 14 mg/dL (7-18) Creatinine 0.9 MG/DL (0.55-1.30) Estimat Glomerular Filtration Rate > 60 mL/min (>60) Glucose Level 99 MG/DL (74-106) Calcium Level 8.2 MG/DL (8.5-10.1) L Total Bilirubin 1.2 MG/DL (0.2-1.0) H Direct Bilirubin 0.7 MG/DL (0.0-0.3) H Aspartate Amino Transf (AST/SGOT) 77 U/L (15-37) H Alanine Aminotransferase (ALT/SGPT) 54 U/L (12-78) Alkaline Phosphatase 544 U/L (46-116) H Total Protein 6.9 G/DL (6.4-8.2) Albumin 3.2 G/DL (3.4-5.0) L Globulin 3.7 g/dL Albumin/Globulin Ratio 0.9 (1.0-2.7) L Plan Problems: (1) Alcohol withdrawal (2) Melena (3) Anemia (4) Acute alcoholic intoxication (5) Abdominal pain Assessment & Plan: 54M hx liver transplant currently drinking again presented with abd pain afebrile, HD Stable labs with elevated lft's CT reviewed exam with enlarged liver no peritonitis okay for diet no acute surgical intervention iv fluids trend labs etoh refrain discussed thank you ABDOMEN: Liver: Heterogeneous lobular low density in the anterior right and medial left hepatic lobe which may partly reflect perfusion artifact. Follow-up underlying mass difficult to exclude given lobular contour inferiorly. Focal lobularity in the medial left hepatic lobe, nonspecific. Attention to this area on follow-up further imaging. Nonspecific soft tissue stranding in the perihepatic region. Gallbladder and bile ducts: Pneumobilia likely related to stent placement. Gallbladder not seen, likely surgically absent. No ductal dilation. Pancreas: Unremarkable. No mass. No ductal dilation. Spleen: Mild splenomegaly. Adrenals: Unremarkable. No mass. Kidneys and ureters: No evidence for obstructive uropathy. Nonspecific perinephric soft tissue stranding. Nonobstructing left renal calculus. Stomach and bowel: Thickening in the large bowel, especially the hepatic flexure which may partly reflect reactive change. Developing colitis difficult to entirely exclude. No evidence for bowel obstruction. PELVIS: Appendix: No findings to suggest acute appendicitis. Bladder: Thickening of the bladder wall which may partly reflect under distention. Recommend clinical correlation and follow-up to exclude developing cystitis. Reproductive: Unremarkable as visualized. ABDOMEN and PELVIS: Intraperitoneal space: Unremarkable. No free air. No significant fluid collection. Bones/joints: Deformity in the visualized left posterior lateral ribs, likely old posttraumatic change. No acute fracture. No dislocation. Soft tissues: Small fat-containing inguinal hernias bilaterally. Small periumbilical hernia containing fat. Vasculature: Unremarkable. No abdominal aortic aneurysm. Lymph nodes: Unremarkable. No enlarged lymph nodes. IMPRESSION: 1. Finding in the liver which may partly reflect perfusion artifact. Focal infarct or underlying lesion difficult to entirely exclude and follow-up liver MR recommended as indicated. 2. Pneumobilia likely related to stent placement. 3. Nonspecific soft tissue stranding/inflammatory change near the deena hepatis in the right upper quadrant. 4. No discrete fluid collection. 5. Findings which may reflect colitis as described 6. Recommend clinical correlation and close follow-up. 7. No evidence for bowel obstruction or free air. 8. Mild splenomegaly (6) Abnormal liver function test (7) End-stage liver disease (8) Hypokalemia (9) Alcohol intoxication [phone] [id number] (11) Opioid dependence (12) Opioid dependence (13) Alcohol abuse (14) Alcohol abuse (15) Flank pain (16) Pancytopenia (17) Rhabdomyolysis (18) Acute alcoholic intoxication (19) Amphetamine abuse (20) Acute chest pain (21) [id number] (22) Shoulder Pain (23) narcotic seeking behavior Polo Gates Jul 20, 2020 12:20
--- NOTE | 2020-07-20 12:35 | General Progress Note ---
Subjective ROS Limited/Unobtainable: Yes Allergies: Coded Allergies: ACETAMINOPHEN (Unverified Allergy, Unknown, 02/14/14) VOMITTING HYDROCODONE (Unverified Allergy, Unknown, 02/14/14) VOMITTING Objective Last 24 Hour Vital Signs Date Time Temp Pulse Resp B/P (MAP) Pulse Ox O2 Delivery O2 Flow Rate FiO2 07/20/20 09:00 Room Air 07/20/20 08:47 94 145/95 07/20/20 08:00 98.2 94 18 145/95 (112) 97 07/20/20 04:00 97.7 100 18 127/82 (97) 97 07/20/20 00:00 97.7 93 18 140/91 (107) 97 07/19/20 22:45 97.1 91 18 141/93 (109) 99 07/19/20 22:45 Room Air 07/19/20 22:33 98.6 82 20 143/89 99 Room Air 82 07/19/20 16:05 98.6 82 20 143/89 99 Room Air 82 Intake and Output 07/19/20 07/20/20 19:00 07:00 Intake Total 2200 ml Balance 2200 ml Intake Oral 1200 ml IV Total 1000 ml # Voids 3 # Bowel Movements 1 Laboratory Tests 07/20/20 05:44: White Blood Count 5.1, Red Blood Count 3.27L, Hemoglobin 10.3L, Hematocrit 28.9L , Mean Corpuscular Volume 88, Mean Corpuscular Hemoglobin 31.5H, Mean Corpuscular Hemoglobin Concent 35.7, Red Cell Distribution Width 19.3H, Platelet Count 69L, Mean Platelet Volume 7.1, Neutrophils (%) (Auto) , Lymphocytes (%) (Auto) , Monocytes (%) (Auto) , Eosinophils (%) (Auto) , Basophils (%) (Auto) , Differential Total Cells Counted 100, Neutrophils % (Manual) 87H, Lymphocytes % (Manual) 5L, Monocytes % (Manual) 8, Eosinophils % (Manual) 0, Basophils % (Manual) 0, Band Neutrophils 0, Platelet Estimate DecreasedL, Platelet Morphology Normal, Hypochromasia 1+, Anisocytosis 1+, Sodium Level 137, Potassium Level 3.4L, Chloride Level 102, Carbon Dioxide Level 28, Anion Gap 7, Blood Urea Nitrogen 14, Creatinine 0.9, Estimat Glomerular Filtration Rate > 60, Glucose Level 99, Calcium Level 8.2L, Total Bilirubin 1.2H, Direct Bilirubin 0.7H, Aspartate Amino Transf (AST/SGOT) 77H, Alanine Aminotransferase (ALT/SGPT) 54, Alkaline Phosphatase 544H, Total Protein 6.9, Albumin 3.2L, Globulin 3.7, Albumin/Globulin Ratio 0.9L Height (Feet): 5 Height (Inches): 7.00 Weight (Pounds): 180 General Appearance: no apparent distress EENT: PERRL/EOMI Neck: supple Cardiovascular: normal rate Respiratory/Chest: decreased breath sounds Abdomen: normal bowel sounds, non tender, soft Extremities: non-tender Assessment/Plan Problem List: (1) History of liver transplant ICD Codes: Z94.4 - Liver transplant status SNOMED: 152746074 (2) Abnormal liver function test ICD Codes: R94.5 - Abnormal results of liver function studies SNOMED: 065716206 (3) Abdominal pain ICD Codes: R10.9 - Unspecified abdominal pain SNOMED: 18281471 (4) Acute alcoholic intoxication ICD Codes: F10.129 - Alcohol abuse with intoxication, unspecified SNOMED: 07493213 (5) Methamphetamine abuse ICD Codes: F15.10 - Other stimulant abuse, uncomplicated SNOMED: 052594011 Assessment/Plan: s/p recent ercp and stenting at [facility] fu labs thiamine/folate/MVI monitor for withdraw resume home meds for liver transplant anemia work up repeat labs in Josse Bartholomew MD Jul 20, 2020 12:35
--- NOTE | 2020-07-20 13:22 | Infectious Diseases Prog Note ---
Assessment/Plan Assessment/Plan A; 1. Altered mental status, Alcohol intoxication 2. colitis. 3. Status post liver transplant. 4. Methamphetamine , THC & Alcohol abuse PLAN: 1. Continue Zosyn. Subjective ROS Limited/Unobtainable: No Constitutional: Reports: no symptoms, other - feels better Respiratory: Reports: no symptoms Gastrointestinal/Abdominal: Reports: diarrhea Genitourinary: Reports: no symptoms Allergies: Coded Allergies: ACETAMINOPHEN (Unverified Allergy, Unknown, 02/14/14) VOMITTING HYDROCODONE (Unverified Allergy, Unknown, 02/14/14) VOMITTING Objective Last 24 Hour Vital Signs Date Time Temp Pulse Resp B/P (MAP) Pulse Ox O2 Delivery O2 Flow Rate FiO2 07/20/20 09:00 Room Air 07/20/20 08:47 94 145/95 07/20/20 08:00 98.2 94 18 145/95 (112) 97 07/20/20 04:00 97.7 100 18 127/82 (97) 97 07/20/20 00:00 97.7 93 18 140/91 (107) 97 07/19/20 22:45 97.1 91 18 141/93 (109) 99 07/19/20 22:45 Room Air 07/19/20 22:33 98.6 82 20 143/89 99 Room Air 82 07/19/20 16:05 98.6 82 20 143/89 99 Room Air 82 Height (Feet): 5 Height (Inches): 7.00 Weight (Pounds): 180 HEENT: mucous membranes moist Respiratory/Chest: lungs clear Cardiovascular: normal rate Abdomen: soft, non tender Extremities: no edema Neurologic/Psychiatric: alert, oriented x 3, responsive Microbiology Date/Time Source Procedure Growth Status 07/19/20 07:59 Nasopharynx SARS-CoV-2 RdRp Gene Assay - Final Complete Laboratory Tests Test 07/20/20 05:44 White Blood Count 5.1 K/UL (4.8-10.8) Red Blood Count 3.27 M/UL (4.70-6.10) L Hemoglobin 10.3 G/DL (14.2-18.0) L Hematocrit 28.9 % (42.0-52.0) L Mean Corpuscular Volume 88 FL (80-99) Mean Corpuscular Hemoglobin 31.5 PG (27.0-31.0) H Mean Corpuscular Hemoglobin Concent 35.7 G/DL (32.0-36.0) Red Cell Distribution Width 19.3 % (11.6-14.8) H Platelet Count 69 K/UL (150-450) L Mean Platelet Volume 7.1 FL (6.5-10.1) Neutrophils (%) (Auto) % (45.0-75.0) Lymphocytes (%) (Auto) % (20.0-45.0) Monocytes (%) (Auto) % (1.0-10.0) Eosinophils (%) (Auto) % (0.0-3.0) Basophils (%) (Auto) % (0.0-2.0) Differential Total Cells Counted 100 Neutrophils % (Manual) 87 % (45-75) H Lymphocytes % (Manual) 5 % (20-45) L Monocytes % (Manual) 8 % (1-10) Eosinophils % (Manual) 0 % (0-3) Basophils % (Manual) 0 % (0-2) Band Neutrophils 0 % (0-8) Platelet Estimate Decreased L Platelet Morphology Normal Hypochromasia 1+ Anisocytosis 1+ Sodium Level 137 MMOL/L (136-145) Potassium Level 3.4 MMOL/L (3.5-5.1) L Chloride Level 102 MMOL/L (98-107) Carbon Dioxide Level 28 MMOL/L (21-32) Anion Gap 7 mmol/L (5-15) Blood Urea Nitrogen 14 mg/dL (7-18) Creatinine 0.9 MG/DL (0.55-1.30) Estimat Glomerular Filtration Rate > 60 mL/min (>60) Glucose Level 99 MG/DL (74-106) Calcium Level 8.2 MG/DL (8.5-10.1) L Total Bilirubin 1.2 MG/DL (0.2-1.0) H Direct Bilirubin 0.7 MG/DL (0.0-0.3) H Aspartate Amino Transf (AST/SGOT) 77 U/L (15-37) H Alanine Aminotransferase (ALT/SGPT) 54 U/L (12-78) Alkaline Phosphatase 544 U/L (46-116) H Total Protein 6.9 G/DL (6.4-8.2) Albumin 3.2 G/DL (3.4-5.0) L Globulin 3.7 g/dL Albumin/Globulin Ratio 0.9 (1.0-2.7) L Current Medications Medications (Trade) Dose Ordered Sig/Lauro Route PRN Reason Start Time Stop Time Status Last Admin Dose Admin Amlodipine Besylate (Norvasc) 10 mg DAILY ORAL 07/20/20 09:00 08/19/20 08:59 07/20/20 08:47 Ferrous Sulfate (Feosol) 325 mg DAILY ORAL 07/20/20 09:00 10/18/20 08:59 07/20/20 08:47 Folic Acid (Folate) 1 mg DAILY ORAL 07/20/20 09:00 08/19/20 08:59 07/20/20 08:47 Iohexol (OMNIPAQUE-300 100ml) 100 ml NOW PRN INJ Radiology Procedure 07/19/20 06:00 07/21/20 05:59 Multivitamins (Multivitamins) 1 tab DAILY ORAL 07/20/20 09:00 08/19/20 08:59 07/20/20 08:48 Mycophenolate Mofetil (Cellcept) 250 mg BID ORAL 07/19/20 18:00 10/17/20 17:59 07/20/20 08:47 Ondansetron HCl (Zofran) 4 mg Q4H PRN IVP Nausea & Vomiting 07/20/20 00:15 08/19/20 00:14 07/20/20 06:32 Pantoprazole (Protonix) 40 mg DAILY ORAL 07/20/20 09:00 08/19/20 08:59 07/20/20 08:47 Piperacillin Sod/ Tazobactam Sod 3.375 gm/Sodium Chloride 110 ml @ 27.5 mls/hr EVERY 8 HOURS IVPB 07/20/20 09:00 07/25/20 08:59 07/20/20 08:48 Pyridoxine HCl (Vitamin B6) 50 mg DAILY ORAL 07/20/20 09:00 08/19/20 08:59 07/20/20 08:47 Thiamine HCl (Vitamin B1) 100 mg DAILY ORAL 07/20/20 09:00 08/19/20 08:59 07/20/20 08:51 Tramadol HCl (Ultram) 50 mg Q6H PRN ORAL MODERATE TO SEVERE PAIN 07/20/20 00:15 07/27/20 00:14 07/20/20 00:48 Deshawn Chaney MD Jul 20, 2020 13:22
--- NOTE | 2020-07-20 13:55 | NUR ---
CASE MANAGEMENT:INITIAL REVIEW 54 YR OLD MALE BIBA FROM [facility];LIVER TRANSPLANT RECIPIENT 5 YRS AGO CC;ABDOMINAL PAIN SI;ABDOMINAL PAIN. TRANSPLANT REJECTION. MELENA. ANEMIA. ETOH INTOXICATION. ANEMIA. 98.6 116 22 172/89 99% ON RA H/H 11.0/32.8 PLT 85 K+ 3.2 T-BILI 1.3 D-BILI 0.8 AST 126 ALP 653 UA+ PROTEIN, KETONES, RBC URINE TOX (+) AMPHETAMINES, THC COVID RAPID ~ NEGATIVE ABD/PELVIS CT ~ 1. Finding in the liver which may partly reflect perfusion artifact. Focal infarct or underlying lesion difficult to entirely exclude and follow-up liver MR recommended as indicated. 2. Pneumobilia likely related to stent placement. 3. Nonspecific soft tissue stranding/inflammatory change near the deena hepatis in the right upper quadrant. 4. No discrete fluid collection. 5. Findings which may reflect colitis as described 6. Recommend clinical correlation and close follow-up. 7. No evidence for bowel obstruction or free air. 8. Mild splenomegaly IS;MYLANTA PO LIDOCAINE PO BENTYL PO IVF NS BOLUS MORPHINE SULFATE IV COMPAZINE IV BENADRYL IV PROTONIX IV DILAUDID IV ATIVAN IV ZOSYN IV ZOFRAN IV SOLU-MEDROL IV THIAMINE PO ADMITTED TO MED SURG MED SURG STATUS
[2020-07-20 16:00] VITALS: BP 154/101
[2020-07-20] MEDS ORDERED: Zolpidem 5mg tab ORAL PRN (16:30)
[2020-07-20] MEDS ORDERED: NS 500ML ONE (18:31)
[2020-07-20] MEDS ORDERED: Tubing IV Secondary IV ONE (18:31)
--- NOTE | 2020-07-20 19:12 | NUR ---
NURSE HAND-OFF: Important Events on Shift: Pt seen by consults; rest of home meds resumed. Patient Status: Stable Diet: Regular Pending Orders: None Pending Results/Labs: None Pending MD notification: None Latest Vital Signs: Temperature 97.9 , Pulse 95 , B/P 154 /101 , Respiratory Rate 18 , O2 SAT 99 , Room Air, O2 Flow Rate Vital Sign Comment: Stable Latest Br[place]ila Fall Score: 35 Fall Risk: Medium Risk Safety Measures: Call light Within Reach, Bed Alarm , Side Rails Side Rails x2, Bed position Low and Locked. Fall Precautions: Yellow Socks Door Sign Patient Fall Education Report given to MARY Dan.
--- NOTE | 2020-07-20 19:27 | NUR ---
NURSE NOTES: patient alert and oriented, no discomfort at this time.
[2020-07-20 19:50] VITALS: BP 151/100
--- NOTE | 2020-07-20 21:54 | NUR ---
NURSE NOTES: after receiving 2 doses of zosyn today, patient refused the 2200 dose. he verbalized he a;ready had 2 today and its making him feel sick, unable to describe what he really feels, further said he feels that he is pale and feeling hot, checked temp. its 97.9 patient also said he has some itching. left a voicemail to dr adrian. awaiting call back
--- NOTE | 2020-07-20 22:45 | NUR ---
NURSE NOTES:received orders from dr morales and dr adrian, noted and carried out.
[2020-07-21 04:00] VITALS: BP 127/89
--- NOTE | 2020-07-21 06:26 | NUR ---
NURSE HAND-OFF: Important Events on Shift:[] patient developed itching, given benadryl and offered calazime paste, patient relieved. zosyn discontinued and converted to levaquin po to be started today. no episode of diarrhea noted Patient Status: [] stable Diet: [] regular Pending Orders: [] none Pending Results/Labs:[] none Pending MD notification:[] none Latest Vital Signs: Temperature 98.8 , Pulse 83 , B/P 127 /89 , Respiratory Rate 18 , O2 SAT 18 , Room Air, O2 Flow Rate . Vital Sign Comment: [] Latest Brambila Fall Score: 35 Fall Risk: Medium Risk Safety Measures: Call light Within Reach, Bed Alarm , Side Rails Side Rails x2, Bed position Low and Locked. Fall Precautions: Yellow Socks Door Sign Patient Fall Education Report given to []. Addendum: 07/21/20 at 0706 by Ni Bowen RN report given to tera srinivasan
[2020-07-21 06:46] LABS: HEMATOCRIT 29.3 % (42.0-52.0); HEMOGLOBIN 10.2 G/DL (14.2-18.0); MEAN CORPUSCULAR VOLUME 90 FL (80-99); PLATELET COUNT 45 K/UL (150-450); RED BLOOD COUNT 3.27 M/UL (4.70-6.10); RED CELL DISTRIBUTION WIDTH 18.6 % (11.6-14.8)
--- NOTE | 2020-07-21 07:00 | NUR ---
NURSE NOTES:RECEIVED REPORT FR. NIGHT RN(KASEY),PT EATING BREAKFAST.PLAN OF CARE DISCUSSED INCLUDING ALL MEDICATIONS BUT HESITANT TO TAKE ANTIBIOTIC PO MEDS.PT. WANTS BENADRYL AND PAIN MED AT THE SAME TIME,ADVICED RE:TO GIVE 30 MINUTES APART,AGREEABLE.
--- NOTE | 2020-07-21 07:07 | General Progress Note ---
Subjective ROS Limited/Unobtainable: Yes Allergies: Coded Allergies: ACETAMINOPHEN (Unverified Allergy, Unknown, 02/14/14) VOMITTING HYDROCODONE (Unverified Allergy, Unknown, 02/14/14) VOMITTING Objective Last 24 Hour Vital Signs Date Time Temp Pulse Resp B/P (MAP) Pulse Ox O2 Delivery O2 Flow Rate FiO2 07/21/20 04:00 98.8 83 18 127/89 (102) 18 07/20/20 21:00 Room Air 07/20/20 19:50 97.7 20 151/100 (117) 98 07/20/20 16:00 97.9 95 18 154/101 (118) 99 07/20/20 12:00 98.2 95 18 141/88 (105) 98 07/20/20 09:00 Room Air 07/20/20 08:47 94 145/95 07/20/20 08:00 98.2 94 18 145/95 (112) 97 Intake and Output 07/20/20 07/21/20 19:00 07:00 Intake Total 900 ml 960 ml Balance 900 ml 960 ml Intake Oral 900 ml 960 ml # Voids 3 3 Laboratory Tests 07/20/20 20:00: Stool Occult Blood [Pending] 07/21/20 04:50: White Blood Count 3.0L, Red Blood Count 3.27L, Hemoglobin 10.2L, Hematocrit 29.3L, Mean Corpuscular Volume 90, Mean Corpuscular Hemoglobin 31.3H, Mean Corpuscular Hemoglobin Concent 34.9, Red Cell Distribution Width 18.6H, Platelet Count 45L, Mean Platelet Volume 7.5, Neutrophils (%) (Auto) , Lymphocytes (%) (Auto) , Monocytes (%) (Auto) , Eosinophils (%) (Auto) , Basophils (%) (Auto) , Neutrophils % (Manual) [Pending], Lymphocytes % (Manual) [Pending], Platelet E stimate [Pending], Platelet Morphology [Pending], Sodium Level [Pending], Potassium Level [Pending], Chloride Level [Pending], Carbon Dioxide Level [Pending], Blood Urea Nitrogen [Pending], Creatinine [Pending], Estimat Glomerular Filtration Rate [Pending], Glucose Level [Pending], Calcium Level [Pending], Phosphorus Level [Pending], Magnesium Level [Pending], Iron Level [Pending], Unsaturated Iron Binding [Pending], Total Bilirubin [Pending], Aspartate Amino Transf (AST/SGOT) [Pending], Alanine Aminotransferase (ALT/SGPT) [Pending], Alkaline Phosphatase [Pending], Total Protein [Pending], Albumin [Pending], Globulin [Pending] Height (Feet): 5 Height (Inches): 7.00 Weight (Pounds): 180 General Appearance: no apparent distress EENT: normal ENT inspection Neck: supple Cardiovascular: normal rate Respiratory/Chest: decreased breath sounds Abdomen: normal bowel sounds, non tender, soft Extremities: non-tender Assessment/Plan Problem List: (1) History of liver transplant ICD Codes: Z94.4 - Liver transplant status SNOMED: 525586308 (2) Abnormal liver function test ICD Codes: R94.5 - Abnormal results of liver function studies SNOMED: 630251283 (3) Abdominal pain ICD Codes: R10.9 - Unspecified abdominal pain SNOMED: 83073287 (4) Acute alcoholic intoxication ICD Codes: F10.129 - Alcohol abuse with intoxication, unspecified SNOMED: 44737683 (5) Methamphetamine abuse ICD Codes: F15.10 - Other stimulant abuse, uncomplicated SNOMED: 625102132 Assessment/Plan: s/p recent ercp and stenting at [facility] fu labs thiamine/folate/MVI monitor for withdraw anemia work up repeat labs in am dc planning per primary team Josse Miramontes MD Jul 21, 2020 07:07
[2020-07-21 07:12] LABS: % IRON SATURATION 12 % (15-50); IRON 42 ug/dL (50-175); TOTAL IRON BINDING CAPACITY 359 ug/dL (250-450)
[2020-07-21 07:25] LABS: ALANINE AMINOTRANSFERASE 54 U/L (12-78); ALBUMIN 3.1 G/DL (3.4-5.0); ALBUMIN/GLOBULIN RATIO 0.9 (1.0-2.7); ALKALINE PHOSPHATASE 469 U/L (46-116); ANION GAP 7 mmol/L (5-15); ASPARTATE AMINO TRANSFERASE 88 U/L (15-37); BILIRUBIN,TOTAL 1.3 MG/DL (0.2-1.0); BLOOD UREA NITROGEN 14 mg/dL (7-18); CARBON DIOXIDE 26 MMOL/L (21-32); CHLORIDE 103 MMOL/L (98-107); CREATININE 0.8 MG/DL (0.55-1.30); POTASSIUM 3.4 MMOL/L (3.5-5.1); SODIUM 136 MMOL/L (136-145)
[2020-07-21 07:38] LABS: BILIRUBIN,DIRECT 0.6 MG/DL (0.0-0.3)
[2020-07-21 07:55] LABS: PHOSPHORUS 2.7 MG/DL (2.5-4.9)
[2020-07-21 08:00] VITALS: BP 138/92
[2020-07-21] MEDS: Mycophenolate 250mg cap ORAL SCH (08:35)
[2020-07-21 08:39] VITALS: BP 138/92
[2020-07-21] MEDS: Pyridoxine 50mg tab ORAL SCH (08:39)
[2020-07-21] MEDS: Thiamine 100mg tab ORAL SCH (08:39)
[2020-07-21] MEDS ORDERED: Levofloxacin 500mg tab ORAL SCH ×2 (09:00)
[2020-07-21] MEDS ORDERED: Venlafaxine XR 37.5mg cap ORAL SCH (09:00)
[2020-07-21] MEDS: traMADol 50mg tab ORAL PRN ×2 (09:18→15:00)
--- NOTE | 2020-07-21 10:25 | NUR ---
INSURANCE CLINICALS/REVIEW ( 07/19-07/21) FAXED TO [facility] CM: Gayle YANES [phone] FX [phone]
[2020-07-21] MEDS ORDERED: TACROLIMUS1 MG PO (10:39)
[2020-07-21] MEDS ORDERED: ZOLPIDEM TARTRAT5 MG ORAL (10:39)
--- NOTE | 2020-07-21 10:40 | NUR ---
NURSE NOTES:SEEN BY D/C ORDERS CARRIED OUT.
[2020-07-21] MEDS ORDERED: LEVOFLOXACIN500 MG ORAL (10:41)
--- NOTE | 2020-07-21 11:11 | Pulmonology Progress Note ---
Subjective ROS Limited/Unobtainable: Yes Interval Events: none major reported per nursing Constitutional: Reports: no symptoms HEENT: Repors: no symptoms Respiratory: Reports: no symptoms Cardiovascular: Reports: no symptoms Allergies: Coded Allergies: ACETAMINOPHEN (Unverified Allergy, Unknown, 02/14/14) VOMITTING HYDROCODONE (Unverified Allergy, Unknown, 02/14/14) VOMITTING Objective Last 24 Hour Vital Signs Date Time Temp Pulse Resp B/P (MAP) Pulse Ox O2 Delivery O2 Flow Rate FiO2 07/21/20 09:00 Room Air 07/21/20 08:39 107 138/92 07/21/20 08:00 97.4 107 18 138/92 (107) 18 07/21/20 04:00 98.8 83 18 127/89 (102) 18 07/20/20 21:00 Room Air 07/20/20 19:50 97.7 20 151/100 (117) 98 07/20/20 16:00 97.9 95 18 154/101 (118) 99 07/20/20 12:00 98.2 95 18 141/88 (105) 98 Intake and Output 07/20/20 07/21/20 19:00 07:00 Intake Total 900 ml 960 ml Balance 900 ml 960 ml Intake Oral 900 ml 960 ml # Voids 3 3 Objective 07/21 stool OB neg, C diff neg 07/20 saturating well on RA, acute diarrhea; C diff ordered General Appearance: WD/WN, no acute distress Respiratory: lungs clear Cardiovascular: normal rate, regular rhythm Abdomen: other - obese Microbiology Date/Time Source Procedure Growth Status 07/20/20 07:00 Stool Clostridium difficile Toxin Assay - Final Complete 07/19/20 07:59 Nasopharynx SARS-CoV-2 RdRp Gene Assay - Final Complete Laboratory Tests 07/20/20 20:00: Stool Occult Blood Negative 07/21/20 04:50: White Blood Count 3.0L, Red Blood Count 3.27L, Hemoglobin 10.2L, Hematocrit 29.3L, Mean Corpuscular Volume 90, Mean Corpuscular Hemoglobin 31.3H, Mean Corpuscular Hemoglobin Concent 34.9, Red Cell Distribution Width 18.6H, Platelet Count 45L, Mean Platelet Volume 7.5, Neutrophils (%) (Auto) , Lymphocytes (%) (Auto) , Monocytes (%) (Auto) , Eosinophils (%) (Auto) , Basophils (%) (Auto) , Differential Total Cells Counted 100, Neutrophils % (Manual) 83H, Lymphocytes % (Manual) 11L, Monocytes % (Manual) 5, Eosinophils % (Manual) 1, Basophils % (Manual) 0, Band Neutrophils 0, Platelet Estimate DecreasedL, Platelet Morphology Normal, Hypochromasia 1+, Anisocytosis 1+, Sodium Level 136, Potassium Level 3.4L, Chloride Level 103, Carbon Dioxide Level 26, Anion Gap 7, Blood Urea Nitrogen 14, Creatinine 0.8, Estimat Glomerular Filtration Rate > 60, Glucose Level 73L, Calcium Level 8.0L, Phosphorus Level 2.7, Magnesium Level 1.2L, Iron Level 42L, Total Iron Binding Capacity 359, Percent Iron Saturation 12L, Unsaturated Iron Binding 317, Total Bilirubin 1.3H, Direct Bilirubin 0.6H, Aspartate Amino Transf (AST/SGOT) 88H, Alanine Aminotransferase (ALT/SGPT) 54, Alkaline Phosphatase 469H, Total Protein 6.6, Albumin 3.1L, Globulin 3.5, Albumin/Globulin Ratio 0.9L Current Medications Medications (Trade) Dose Ordered Sig/Lauro Route PRN Reason Start Time Stop Time Status Last Admin Dose Admin Amlodipine Besylate (Norvasc) 10 mg DAILY ORAL 07/20/20 09:00 08/19/20 08:59 07/21/20 08:39 Diphenhydramine HCl (Benadryl) 25 mg Q6H PRN ORAL Itching 07/20/20 22:45 08/19/20 22:44 07/21/20 08:46 Ferrous Sulfate (Feosol) 325 mg DAILY ORAL 07/20/20 09:00 10/18/20 08:59 07/21/20 08:36 Folic Acid (Folate) 1 mg DAILY ORAL 07/20/20 09:00 08/19/20 08:59 07/21/20 08:39 Levofloxacin (Levaquin) 500 mg Q24H ORAL 07/21/20 09:00 07/28/20 08:59 Multivitamins (Multivitamins) 1 tab DAILY ORAL 07/20/20 09:00 08/19/20 08:59 07/21/20 08:39 Mycophenolate Mofetil (Cellcept) 250 mg BID ORAL 07/19/20 18:00 10/17/20 17:59 07/21/20 08:35 Ondansetron HCl (Zofran ODT) 4 mg DAILY ORAL 07/21/20 09:00 08/20/20 08:59 07/21/20 08:39 Ondansetron HCl (Zofran) 4 mg Q4H PRN IVP Nausea & Vomiting 07/20/20 00:15 08/19/20 00:14 07/20/20 06:32 Pantoprazole (Protonix) 40 mg DAILY ORAL 07/20/20 09:00 08/19/20 08:59 07/21/20 08:39 Pyridoxine HCl (Vitamin B6) 50 mg DAILY ORAL 07/20/20 09:00 08/19/20 08:59 07/21/20 08:39 Tacrolimus (Prograf) 3 mg TWICE A DAY ORAL 07/20/20 18:00 10/18/20 17:59 07/21/20 08:35 Thiamine HCl (Vitamin B1) 100 mg DAILY ORAL 07/20/20 09:00 08/19/20 08:59 07/21/20 08:39 Tramadol HCl (Ultram) 50 mg Q6H PRN ORAL MODERATE TO SEVERE PAIN 07/20/20 00:15 07/27/20 00:14 07/21/20 09:18 Venlafaxine HCl (Effexor-XR) 225 mg DAILY ORAL 07/21/20 09:00 10/19/20 08:59 07/21/20 08:36 Zolpidem Tartrate (Ambien) 5 mg BEDTIME PRN ORAL Insomnia 07/20/20 16:30 07/27/20 16:29 Assessment/Plan Assessment/Plan 1. Colitis. - GI/Surgery consult appreciated. - Dr. Miramontes following - was on zosyn - we will switch to levofloxacin PO 2. Elevated LFTs. - Patient reports drinking despite liver transplant surgery 5 years ago; he is no longer under [facility] care due to his noncompliance. - Strongly discouraged alcohol use. - Monitor LFTs; slight improvement today 3. Melena. - s/p once Protonix. - GI following - stool OB neg 4. Vomiting. - Better on Zofran. 5. History of liver transplant, on medication. - We will continue immunosuppressive therapy. 6. Acute diarrhea - C diff neg, stool OB neg 7. Concern for UTI - On zosyn per Dr. Nick - switching to PO levofloxacin for discharge today dc today; continue other home medications Tacrolimus and ambien renewed and Rx given Pt agreed to f/u with PCP Medically stable for dc The care for this patient was discussed with my supervising physician. Time spent for this case was approximately 31 minutes. Zain Brown Jul 21, 2020 11:11
--- NOTE | 2020-07-21 11:57 | Infectious Diseases Prog Note ---
Assessment/Plan Assessment/Plan antibiotics : levoquin A 1. Possible urinary tract infection. 2. He also possibly has colitis. 3. Status post liver transplant 4. allergic reaction to zosyn improving P 1. continue po levoquin 7 more days 2. will follow up cultures Subjective Constitutional: Denies: fever, chills Respiratory: Denies: shortness of breath, dry cough Gastrointestinal/Abdominal: Reports: nausea, diarrhea; Denies: vomiting Musculoskeletal: Reports: pain - abdominal decreasing Allergies: Coded Allergies: ACETAMINOPHEN (Unverified Allergy, Unknown, 02/14/14) VOMITTING HYDROCODONE (Unverified Allergy, Unknown, 02/14/14) VOMITTING Objective Last 24 Hour Vital Signs Date Time Temp Pulse Resp B/P (MAP) Pulse Ox O2 Delivery O2 Flow Rate FiO2 07/21/20 09:00 Room Air 07/21/20 08:39 107 138/92 07/21/20 08:00 97.4 107 18 138/92 (107) 18 07/21/20 04:00 98.8 83 18 127/89 (102) 18 07/20/20 21:00 Room Air 07/20/20 19:50 97.7 20 151/100 (117) 98 07/20/20 16:00 97.9 95 18 154/101 (118) 99 07/20/20 12:00 98.2 95 18 141/88 (105) 98 Height (Feet): 5 Height (Inches): 7.00 Weight (Pounds): 180 Respiratory/Chest: lungs clear Cardiovascular: normal rate, regular rhythm, no gallop/murmur Abdomen: soft, non tender Extremities: no edema Microbiology Date/Time Source Procedure Growth Status 07/20/20 07:00 Stool Clostridium difficile Toxin Assay - Final Complete 07/19/20 07:59 Nasopharynx SARS-CoV-2 RdRp Gene Assay - Final Complete Laboratory Tests Test 07/20/20 20:00 07/21/20 04:50 Stool Occult Blood Negative (NEGATIVE) White Blood Count 3.0 K/UL (4.8-10.8) L Red Blood Count 3.27 M/UL (4.70-6.10) L Hemoglobin 10.2 G/DL (14.2-18.0) L Hematocrit 29.3 % (42.0-52.0) L Mean Corpuscular Volume 90 FL (80-99) Mean Corpuscular Hemoglobin 31.3 PG (27.0-31.0) H Mean Corpuscular Hemoglobin Concent 34.9 G/DL (32.0-36.0) Red Cell Distribution Width 18.6 % (11.6-14.8) H Platelet Count 45 K/UL (150-450) L Mean Platelet Volume 7.5 FL (6.5-10.1) Neutrophils (%) (Auto) % (45.0-75.0) Lymphocytes (%) (Auto) % (20.0-45.0) Monocytes (%) (Auto) % (1.0-10.0) Eosinophils (%) (Auto) % (0.0-3.0) Basophils (%) (Auto) % (0.0-2.0) Differential Total Cells Counted 100 Neutrophils % (Manual) 83 % (45-75) H Lymphocytes % (Manual) 11 % (20-45) L Monocytes % (Manual) 5 % (1-10) Eosinophils % (Manual) 1 % (0-3) Basophils % (Manual) 0 % (0-2) Band Neutrophils 0 % (0-8) Platelet Estimate Decreased L Platelet Morphology Normal Hypochromasia 1+ Anisocytosis 1+ Sodium Level 136 MMOL/L (136-145) Potassium Level 3.4 MMOL/L (3.5-5.1) L Chloride Level 103 MMOL/L (98-107) Carbon Dioxide Level 26 MMOL/L (21-32) Anion Gap 7 mmol/L (5-15) Blood Urea Nitrogen 14 mg/dL (7-18) Creatinine 0.8 MG/DL (0.55-1.30) Estimat Glomerular Filtration Rate > 60 mL/min (>60) Glucose Level 73 MG/DL (74-106) L Calcium Level 8.0 MG/DL (8.5-10.1) L Phosphorus Level 2.7 MG/DL (2.5-4.9) Magnesium Level 1.2 MG/DL (1.8-2.4) L Iron Level 42 ug/dL (50-175) L Total Iron Binding Capacity 359 ug/dL (250-450) Percent Iron Saturation 12 % (15-50) L Unsaturated Iron Binding 317 ug/dL (112-346) Total Bilirubin 1.3 MG/DL (0.2-1.0) H Direct Bilirubin 0.6 MG/DL (0.0-0.3) H Aspartate Amino Transf (AST/SGOT) 88 U/L (15-37) H Alanine Aminotransferase (ALT/SGPT) 54 U/L (12-78) Alkaline Phosphatase 469 U/L (46-116) H Total Protein 6.6 G/DL (6.4-8.2) Albumin 3.1 G/DL (3.4-5.0) L Globulin 3.5 g/dL Albumin/Globulin Ratio 0.9 (1.0-2.7) L Current Medications Medications (Trade) Dose Ordered Sig/Lauro Route PRN Reason Start Time Stop Time Status Last Admin Dose Admin Amlodipine Besylate (Norvasc) 10 mg DAILY ORAL 07/20/20 09:00 08/19/20 08:59 07/21/20 08:39 Diphenhydramine HCl (Benadryl) 25 mg Q6H PRN ORAL Itching 07/20/20 22:45 08/19/20 22:44 07/21/20 08:46 Ferrous Sulfate (Feosol) 325 mg DAILY ORAL 07/20/20 09:00 10/18/20 08:59 07/21/20 08:36 Folic Acid (Folate) 1 mg DAILY ORAL 07/20/20 09:00 08/19/20 08:59 07/21/20 08:39 Levofloxacin (Levaquin) 500 mg Q24H ORAL 07/21/20 09:00 07/28/20 08:59 Multivitamins (Multivitamins) 1 tab DAILY ORAL 07/20/20 09:00 08/19/20 08:59 07/21/20 08:39 Mycophenolate Mofetil (Cellcept) 250 mg BID ORAL 07/19/20 18:00 10/17/20 17:59 07/21/20 08:35 Ondansetron HCl (Zofran ODT) 4 mg DAILY ORAL 07/21/20 09:00 08/20/20 08:59 07/21/20 08:39 Ondansetron HCl (Zofran) 4 mg Q4H PRN IVP Nausea & Vomiting 07/20/20 00:15 08/19/20 00:14 07/20/20 06:32 Pantoprazole (Protonix) 40 mg DAILY ORAL 07/20/20 09:00 08/19/20 08:59 07/21/20 08:39 Pyridoxine HCl (Vitamin B6) 50 mg DAILY ORAL 07/20/20 09:00 08/19/20 08:59 07/21/20 08:39 Tacrolimus (Prograf) 3 mg TWICE A DAY ORAL 07/20/20 18:00 10/18/20 17:59 07/21/20 08:35 Thiamine HCl (Vitamin B1) 100 mg DAILY ORAL 07/20/20 09:00 08/19/20 08:59 07/21/20 08:39 Tramadol HCl (Ultram) 50 mg Q6H PRN ORAL MODERATE TO SEVERE PAIN 07/20/20 00:15 07/27/20 00:14 07/21/20 09:18 Venlafaxine HCl (Effexor-XR) 225 mg DAILY ORAL 07/21/20 09:00 10/19/20 08:59 07/21/20 08:36 Zolpidem Tartrate (Ambien) 5 mg BEDTIME PRN ORAL Insomnia 07/20/20 16:30 07/27/20 16:29 Esperazna Nick MD Jul 21, 2020 11:57
--- NOTE | 2020-07-21 12:31 | Surgery Progress Note ---
Surgery Progress Note Subjective Additional Comments no acute events comfortable feels better no n/v Objective Last 24 Hour Vital Signs Date Time Temp Pulse Resp B/P (MAP) Pulse Ox O2 Delivery O2 Flow Rate FiO2 07/21/20 09:00 Room Air 07/21/20 08:39 107 138/92 07/21/20 08:00 97.4 107 18 138/92 (107) 18 07/21/20 04:00 98.8 83 18 127/89 (102) 18 07/20/20 21:00 Room Air 07/20/20 19:50 97.7 20 151/100 (117) 98 07/20/20 16:00 97.9 95 18 154/101 (118) 99 I&O Intake and Output 07/20/20 07/21/20 19:00 07:00 Intake Total 900 ml 960 ml Balance 900 ml 960 ml Intake Oral 900 ml 960 ml # Voids 3 3 Cardiovascular: RSR Respiratory: decreased breath sounds Abdomen: soft, non-tender, present bowel sounds, non-distended Extremities: no tenderness, no cyanosis Laboratory Tests Test 07/20/20 20:00 07/21/20 04:50 Stool Occult Blood Negative (NEGATIVE) White Blood Count 3.0 K/UL (4.8-10.8) L Red Blood Count 3.27 M/UL (4.70-6.10) L Hemoglobin 10.2 G/DL (14.2-18.0) L Hematocrit 29.3 % (42.0-52.0) L Mean Corpuscular Volume 90 FL (80-99) Mean Corpuscular Hemoglobin 31.3 PG (27.0-31.0) H Mean Corpuscular Hemoglobin Concent 34.9 G/DL (32.0-36.0) Red Cell Distribution Width 18.6 % (11.6-14.8) H Platelet Count 45 K/UL (150-450) L Mean Platelet Volume 7.5 FL (6.5-10.1) Neutrophils (%) (Auto) % (45.0-75.0) Lymphocytes (%) (Auto) % (20.0-45.0) Monocytes (%) (Auto) % (1.0-10.0) Eosinophils (%) (Auto) % (0.0-3.0) Basophils (%) (Auto) % (0.0-2.0) Differential Total Cells Counted 100 Neutrophils % (Manual) 83 % (45-75) H Lymphocytes % (Manual) 11 % (20-45) L Monocytes % (Manual) 5 % (1-10) Eosinophils % (Manual) 1 % (0-3) Basophils % (Manual) 0 % (0-2) Band Neutrophils 0 % (0-8) Platelet Estimate Decreased L Platelet Morphology Normal Hypochromasia 1+ Anisocytosis 1+ Sodium Level 136 MMOL/L (136-145) Potassium Level 3.4 MMOL/L (3.5-5.1) L Chloride Level 103 MMOL/L (98-107) Carbon Dioxide Level 26 MMOL/L (21-32) Anion Gap 7 mmol/L (5-15) Blood Urea Nitrogen 14 mg/dL (7-18) Creatinine 0.8 MG/DL (0.55-1.30) Estimat Glomerular Filtration Rate > 60 mL/min (>60) Glucose Level 73 MG/DL (74-106) L Calcium Level 8.0 MG/DL (8.5-10.1) L Phosphorus Level 2.7 MG/DL (2.5-4.9) Magnesium Level 1.2 MG/DL (1.8-2.4) L Iron Level 42 ug/dL (50-175) L Total Iron Binding Capacity 359 ug/dL (250-450) Percent Iron Saturation 12 % (15-50) L Unsaturated Iron Binding 317 ug/dL (112-346) Total Bilirubin 1.3 MG/DL (0.2-1.0) H Direct Bilirubin 0.6 MG/DL (0.0-0.3) H Aspartate Amino Transf (AST/SGOT) 88 U/L (15-37) H Alanine Aminotransferase (ALT/SGPT) 54 U/L (12-78) Alkaline Phosphatase 469 U/L (46-116) H Total Protein 6.6 G/DL (6.4-8.2) Albumin 3.1 G/DL (3.4-5.0) L Globulin 3.5 g/dL Albumin/Globulin Ratio 0.9 (1.0-2.7) L Plan Problems: (1) Alcohol withdrawal (2) Melena (3) Anemia (4) Acute alcoholic intoxication (5) Abdominal pain Assessment & Plan: 54M hx liver transplant currently drinking again presented with abd pain afebrile, HD Stable labs with elevated lft's CT reviewed exam with enlarged liver no peritonitis okay for diet no acute surgical intervention iv fluids trend labs etoh refrain discussed thank you ABDOMEN: Liver: Heterogeneous lobular low density in the anterior right and medial left hepatic lobe which may partly reflect perfusion artifact. Follow-up underlying mass difficult to exclude given lobular contour inferiorly. Focal lobularity in the medial left hepatic lobe, nonspecific. Attention to this area on follow-up further imaging. Nonspecific soft tissue stranding in the perihepatic region. Gallbladder and bile ducts: Pneumobilia likely related to stent placement. Gallbladder not seen, likely surgically absent. No ductal dilation. Pancreas: Unremarkable. No mass. No ductal dilation. Spleen: Mild splenomegaly. Adrenals: Unremarkable. No mass. Kidneys and ureters: No evidence for obstructive uropathy. Nonspecific perinephric soft tissue stranding. Nonobstructing left renal calculus. Stomach and bowel: Thickening in the large bowel, especially the hepatic flexure which may partly reflect reactive change. Developing colitis difficult to entirely exclude. No evidence for bowel obstruction. PELVIS: Appendix: No findings to suggest acute appendicitis. Bladder: Thickening of the bladder wall which may partly reflect under distention. Recommend clinical correlation and follow-up to exclude developing cystitis. Reproductive: Unremarkable as visualized. ABDOMEN and PELVIS: Intraperitoneal space: Unremarkable. No free air. No significant fluid collection. Bones/joints: Deformity in the visualized left posterior lateral ribs, likely old posttraumatic change. No acute fracture. No dislocation. Soft tissues: Small fat-containing inguinal hernias bilaterally. Small periumbilical hernia containing fat. Vasculature: Unremarkable. No abdominal aortic aneurysm. Lymph nodes: Unremarkable. No enlarged lymph nodes. IMPRESSION: 1. Finding in the liver which may partly reflect perfusion artifact. Focal infarct or underlying lesion difficult to entirely exclude and follow-up liver MR recommended as indicated. 2. Pneumobilia likely related to stent placement. 3. Nonspecific soft tissue stranding/inflammatory change near the deena hepatis in the right upper quadrant. 4. No discrete fluid collection. 5. Findings which may reflect colitis as described 6. Recommend clinical correlation and close follow-up. 7. No evidence for bowel obstruction or free air. 8. Mild splenomegaly (6) Abnormal liver function test (7) End-stage liver disease (8) Hypokalemia (9) Alcohol intoxication (10) [id number] (11) Opioid dependence (12) Opioid dependence (13) Alcohol abuse (14) Alcohol abuse (15) Flank pain (16) Pancytopenia (17) Rhabdomyolysis (18) Acute alcoholic intoxication (19) Amphetamine abuse (20) Acute chest pain (21) [id number] (22) Shoulder Pain (23) narcotic seeking behavior Polo Gates Jul 21, 2020 12:31
--- NOTE | 2020-07-21 16:00 | NUR ---
NURSE NOTES:D/C INSTRUCTIONS,HOME MEDS,RX MEDS AND BELONGINGS GIVEN AND ACKNOWLEDGE.PICKED UP BY FRIEND,STABLE ON PICKUP.
--- NOTE | 2020-07-21 19:30 | Discharge Summary ---
Discharge Summary Discharge Summary _ Date of admission: 07/19/2020 Date of discharge: 07/21/[address] Grande History of Present Illness and Brief Hospital Course Mr. Nuñez is a 54-year-old male with history of polysubstance use, end-stage liver disease s/p liver transplant 5 years ago at [facility] with Dr. Bennett. Patient presented to the ED with diffuse abdominal pain associated with nausea and vomiting. He also reported of black tarry stools for 1 week. Initial laboratory study in the ER revealed abnormal LFTs, EtOH level of 31 with negative troponin level. EKG was nonischemic. CT of the abdomen and pelvis showed heterogeneous lobular low-density in the anterior right and medial left hepatic lobe; nonspecific soft tissue stranding/inflammatory change near the deena hepatis in the right upper quadrant and pneumobilia, likely related to stent placement. Also found to have colitis. No perforation or free air was noted. Patient received Protonix for possible PUD, morphine, and Dilaudid for pain control, as well as Zofran and Compazine for nausea. Patient received steroid and antibiotics in the ER. Patient received hydration and thiamine/folic acid. Patient tested negative for COVID-19. Patient was admitted to the hospital for further evaluation and management. Because of his EtOH level, patient was monitored for withdrawal symptoms of acute alcoholic intoxication. Patient was already given thiamine and folate by the time of admission. Patient had a history of liver transplant and reported of recent ERCP and stenting at [facility]. Home medications related to liver transplant were continued during his admission. Patient admitted of alcohol consumption and was strongly refrained from using alcohol. Patient's LFTs were closely monitored and showed mild improvement over his stay. With the urinalysis result pending and CT of the abdomen and pelvis showing possible colitis, patient was started on IV Zosyn. Urine culture was ordered to adjust antibiotics accordingly. Patient did report mild itchiness of his body while on Zosyn without signs of anaphylaxis. His itchiness improved next day. CBC showed low hemoglobin and hematocrit on arrival. Patient was worked up for anemia. His stool OB test came back negative. C. difficile was negative as well. On 07/21/2020 patient's melena, nausea, vomiting markedly improved and crissy gerber was medically stable for discharge. Patient agreed to have a follow-up appointment with his liver MD. Patient was on IV Zosyn on 07/21/2020 which was switched to oral levofloxacin (to be continued for the next 7 days) before discharge. Patient also requested refill of tacrolimus and Ambien before discharge and prescriptions were given. Consultants: Infectious disease Dr. Chaney, Dr. Nick Surgery Dr. Gates Gastrointestinal Dr. Miramontes Discharge Condition Improved and stable Discharge Activity As tolerated Discharge Diet Regular Final diagnoses UTI Colitis End-stage liver disease History of liver transplant 5 years Melena Anemia Acute alcoholic intoxication Abnormal liver function test Opioid dependence Alcohol abuse Pancytopenia Rhabdomyolysis Amphetamine abuse History of shoulder surgery I have been assigned to dictate discharge summary for this account. Zain Brown Jul 21, 2020 19:30
== END 2020-07-21 16:00 | disposition home or self-care (01) | DRG 378 ==
LOC: EDBD 05:39 → EMR 06:25 → 3E 08:32 → EDBEDREQ 21:34
DX: K92.1 Melena (principal); Z94.4 Liver transplant status; F11.20 Opioid dependence, uncomplicated; D61.818 Other pancytopenia; N39.0 Urinary tract infection, site not specified; F10.230 Alcohol dependence with withdrawal, uncomplicated; M62.82 Rhabdomyolysis; K52.9 Noninfective gastroenteritis and colitis, unspecified; K70.9 Alcoholic liver disease, unspecified; F15.10 Other stimulant abuse, uncomplicated; D64.9 Anemia, unspecified; Z91.19 Patient's noncompliance with other medical treatment and regimen; E87.6 Hypokalemia; Z76.5 Malingerer [conscious simulation]; Z20.828 Contact with and (suspected) exposure to other viral communicable diseases; L29.9 Pruritus, unspecified; T36.0X5A Adverse effect of penicillins, initial encounter; Y92.230 Patient room in hospital as the place of occurrence of the external cause
CPT/HCPCS: 36415; 74177; 80053; 80197; 80307; 81003; 82105; 82248; 82270; 83540; 83550; 83690; 83735; 84100; 84484; 85007; 85025; 87324; 93005; 96360; 99285; G0480; J2405; J7030; U0002